=== PATIENT | female | born 1930 | race Two or more races ===

== ENCOUNTER 2016-05-30 21:09 | Inpatient (IN) | payer MEDICARE, OTHER ==
[~2016-05-30] VITALS: Ht 170.2 cm; Wt 77.1 kg
[2016-05-30] MEDS ORDERED: ALBUTEROL FS 2.5 MG/3 ML VIAL.NEB ONE (21:16)
[2016-05-30 21:20] VITALS: BP 161/104
[2016-05-30] MEDS ORDERED: NTG 50 MG/D5W250 ML BOTTL 250 ML IV ONE ×2 (21:21→21:30)
[2016-05-30] MEDS ORDERED: methylPREDNISolone SOD SUCC 125 MG/2ML VIAL ONE (21:21)
[2016-05-30] MEDS ORDERED: IV SET PRIMARY PUMP SET 1 EA INFUS.SET MC ONE ×2 (21:21→23:17)
[2016-05-30] MEDS ORDERED: FUROSEMIDE 40 MG/4 ML VIAL ONE (21:21)
[2016-05-30 21:23] LABS: BASOPHILS # (AUTO) 0.3 /CMM (0.0-0.2); BASOPHILS % (AUTO) 2.2 % (0.0-2.0); DIFF TOTAL % 100 %; EOSINOPHILS # (AUTO) 0.1 /CMM (0.0-0.7); EOSINOPHILS % (AUTO) 0.8 % (0.0-6.0); HEMATOCRIT 43 % (33-45); HEMOGLOBIN 13.8 g/dL (11.5-14.8); LYMPHOCYTES # (AUTO) 0.6 /CMM (0.8-4.8); MEAN CORPUSCULAR HEMOGLOBIN 27 PG (26.0-33.0); MEAN CORPUSCULAR HGB CONC 32 g/dl (31.0-36.0); MEAN CORPUSCULAR VOLUME 84 fL (82-100); MONOCYTES # (AUTO) 0.9 /CMM (0.1-1.30); NEUTROPHILS # (AUTO) 12.4 /CMM (1.8-8.9); PLATELET COUNT (AUTO) 362 /CMM (150-450); RED BLOOD CELL COUNT(AUTO) 5.12 MIL/uL (4.0-5.2); WHITE BLOOD COUNT (AUTO) 14.3 K/uL (4.3-11.0)
[2016-05-30] MEDS ORDERED: X VIATE TP (21:26)
[2016-05-30] MEDS ORDERED: IBUP-1481 PO (21:26)
[2016-05-30] MEDS ORDERED: TRIAMCINOLONE 0.5% TP (21:26)
[2016-05-30] MEDS ORDERED: MATURE MULTIVITAMIN PO (21:26)
[2016-05-30] MEDS ORDERED: ATOR40TA PO (21:26)
[2016-05-30] MEDS ORDERED: DILT360T13 PO (21:26)
[2016-05-30] MEDS ORDERED: ASPI325T2 PO (21:26)
[2016-05-30] MEDS ORDERED: ESCI10TA PO (21:26)
[2016-05-30] MEDS ORDERED: FUROSEMIDE 40 MG/4 ML VIAL IV ONE (21:30)
[2016-05-30] MEDS ORDERED: ALBUTEROL FS 2.5 MG/3 ML VIAL.NEB NEB ONE (21:30)
[2016-05-30] MEDS ORDERED: methylPREDNISolone SOD SUCC 125 MG/2ML VIAL IV ONE (21:30)
[2016-05-30 21:36] LABS: CALCIUM, SERUM 9.1 mg/dL (8.5-10.1); CREATININE 1.1 mg/dL (0.6-1.3); POTASSIUM 3.7 mmol/L (3.5-5.1)
[2016-05-30 21:40] LABS: INR 0.99 (0.87-1.13); PROTHROMBIN TIME 10.4 SECS (9.5-12.7)
[2016-05-30 21:44] LABS: TROPONIN I 0.032 ng/mL (0.00-0.056)
[2016-05-30 21:48] LABS: ALBUMIN 3.7 g/dL (3.4-5.0); BILIRUBIN,DIRECT 0.1 mg/dL (0.0-0.2); BILIRUBIN,TOTAL 0.4 mg/dL (0.2-1.0); INDIRECT BILIRUBIN 0.3 mg/dL (0.0-1.1); TOTAL PROTEIN, SERUM 7.2 g/dL (6.4-8.2)
[2016-05-30] MEDS ORDERED: DILTIAZEM HCL 50 MG IV ONE (22:24)
[2016-05-30] MEDS ORDERED: DILTIAZEM HCL 50 MG IV IV ONE ×2 (22:30→23:00)
[2016-05-30 22:34] LABS: ABG BASE EXCESS 1.3 mmol/L; ABG HCO3 26.3 mmol/L; ABG PCO2 43.1 mmHg (35.0-45.0); ABG PH 7.403 (7.350-7.450); ABG PO2 318.5 mmHg (75.0-100.0); ABG TOTAL HEMOGLOBIN 13.4 G/dL (12.0-16.0); ALLEN TEST Pass; AaDO2 61.9 mmHg; O2Hb 98.4 % (94.0-97.0)
[2016-05-30] MEDS ORDERED: IV D5W 100 ML IV ONE (23:17)
[2016-05-30] MEDS ORDERED: DILTIAZEM HCL 25 MG IV ONE (23:17)
[2016-05-30] MEDS ORDERED: DILTIAZEM HCL IV 125 MG in IV D5W 100 ML IV PRN (23:30)
[2016-05-30 23:45] LABS: LACTIC ACID 2.8 mmol/L (0.4-2.0)
[2016-05-31] VITALS (49 sets, daily range): BP systolic 84–162; BP diastolic 38–115
[2016-05-31 00:06] LABS: *LACTIC ACID REFLEX FLAG YES
[2016-05-31] MEDS ORDERED: LORA0.5T PO (00:28)
[2016-05-31 00:29] LABS: ABG BASE EXCESS 2.1 mmol/L; ABG HCO3 27.4 mmol/L; ABG NOTIFIED WHOM ED CHARGE RN; ABG PCO2 45.3 mmHg (35.0-45.0); ABG PH 7.399 (7.350-7.450); ABG PO2 99.2 mmHg (75.0-100.0); ABG TOTAL HEMOGLOBIN 13.5 G/dL (12.0-16.0); ALLEN TEST Pass; AaDO2 104.9 mmHg; O2Hb 96.1 % (94.0-97.0)
[2016-05-31] MEDS ORDERED: MORPHINE SULFATE INJ 2 MG/ML DISP.SYRIN IV PRN (00:30)
[2016-05-31] MEDS ORDERED: DILTIAZEM HCL IV 125 MG in IV D5W 100 ML IV PRN (00:30)
[2016-05-31] MEDS ORDERED: ENOXAPARIN SODIUM 40 MG/0.4 ML DISP.SYRIN SQ SCH (00:30)
[2016-05-31] MEDS ORDERED: DILTIAZEM HCL 50 MG IV ONE (00:58)
[2016-05-31] MEDS ORDERED: IV D5W 100 ML IV ONE (00:58)
[2016-05-31] MEDS ORDERED: DILTIAZEM HCL 25 MG IV ONE (00:58)
[2016-05-31] MEDS ORDERED: ENOXAPARIN SODIUM 40 MG/0.4 ML DISP.SYRIN SQ ONE (01:06)
[2016-05-31] MEDS ORDERED: NITROGLYCERIN PACKET 1 GM PACKET ONE ×2 (01:17→05:41)
[2016-05-31] MEDS: NITROGLYCERIN PACKET 1 GM PACKET TOP SCH ×2 (01:20→05:49)
[2016-05-31] MEDS ORDERED: METOPROLOL TARTRATE INJ 5 MG/5 ML AMPUL ONE (01:34)
[2016-05-31] MEDS ORDERED: FUROSEMIDE 20 MG/2 ML VIAL ONE (03:57)
[2016-05-31] MEDS: FUROSEMIDE 20 MG/2 ML VIAL IV SCH ×3 (04:10→11:53)
[2016-05-31 05:25] LABS: DIFF TOTAL % 100 %; HEMATOCRIT 40 % (33-45); HEMOGLOBIN 13.1 g/dL (11.5-14.8); LYMPHOCYTES # (AUTO) 0.3 /CMM (0.8-4.8); LYMPHOCYTES % (AUTO) 1.9 % (20.0-44.0); MEAN CORPUSCULAR HEMOGLOBIN 28 PG (26.0-33.0); MEAN CORPUSCULAR HGB CONC 33 g/dl (31.0-36.0); MEAN CORPUSCULAR VOLUME 85 fL (82-100); MONOCYTES % (AUTO) 0.3 % (2.0-12.0); NEUTROPHILS % (AUTO) 97.8 % (43.0-81.0); PLATELET COUNT (AUTO) 308 /CMM (150-450); RED BLOOD CELL COUNT(AUTO) 4.64 MIL/uL (4.0-5.2); WHITE BLOOD COUNT (AUTO) 14.3 K/uL (4.3-11.0)
[2016-05-31 05:40] LABS: TROPONIN I 0.038 ng/mL (0.00-0.056)
[2016-05-31 05:55] LABS: CALCIUM, SERUM 8.7 mg/dL (8.5-10.1); CREATININE 1.4 mg/dL (0.6-1.3); POTASSIUM 4.1 mmol/L (3.5-5.1)
[2016-05-31] MEDS ORDERED: METOPROLOL TARTRATE INJ 5 MG/5 ML AMPUL IVP PRN (06:00)
[2016-05-31 06:22] LABS: LACTIC ACID 5.1 mmol/L (0.4-2.0)
[2016-05-31] MEDS ORDERED: IV NS 0.9% 500 ML IV ONE ×2 (06:46→07:00)
[2016-05-31] MEDS ORDERED: IV SET PRIMARY PUMP SET 1 EA INFUS.SET MC ONE ×2 (06:46→19:11)
[2016-05-31] MEDS: LEVALBUTEROL HCL NEB 1.25 MG/0.5 ML VIAL.NEB NEB SCH ×2 (08:46→13:10)
[2016-05-31] MEDS: methylPREDNISolone SOD SUCC 125 MG/2ML VIAL IV SCH ×3 (08:48→17:53)
[2016-05-31] MEDS: PANTOPRAZOLE 40 MG VIAL IV SCH (08:48)
[2016-05-31] MEDS ORDERED: LORAZEPAM 0.5 MG TABLET PO PRN (09:00)
[2016-05-31] MEDS ORDERED: ASPIRIN 81 MG TAB.CHEW PO SCH (09:00)
[2016-05-31] MEDS ORDERED: methylPREDNISolone SOD SUCC 40 MG/ML VIAL IV SCH (09:00)
[2016-05-31 09:22] LABS: KETONES,URINE NEGATIVE (NEGATIVE); LEUKOCYTE ESTERASE ,URINE TRACE (NEGATIVE)
[2016-05-31] MEDS ORDERED: FEE PK DOSING 1 MIN EA MC ONE (09:35)
[2016-05-31 09:49] LABS: ADD UA MICROSCOPIC YES
[2016-05-31] MEDS: ESCITALOPRAM OXALATE (10 MG) 10 MG TABLET PO SCH (10:33)
[2016-05-31] MEDS: ATORVASTATIN 40 MG TABLET PO SCH (10:33)
[2016-05-31] MEDS: IBUPROFEN 400 MG TABLET PO SCH ×3 (10:33→17:53)
[2016-05-31] MEDS: VANCOMYCIN 1 GM in IV D5W 250 ML IV SCH (10:34)
[2016-05-31] MEDS ORDERED: SECONDARY IV SET 1 EA INFUS.SET MC ONE (10:39)
[2016-05-31 10:48] LABS: RBC,URINE TOO NUMEROUS TO COUN /HPF (0-2)
[2016-05-31 10:49] LABS: ADD URINE CULTURE NO
[2016-05-31] MEDS: PIPERACILLIN /TAZOBACTAM 3.375 G in IV D5W 50 ML IV SCH ×2 (11:53→17:53)
[2016-05-31] MEDS ORDERED: NITROGLYCERIN 30 GM TUBE TP SCH (12:00)
[2016-05-31] MEDS ORDERED: LEVALBUTEROL HCL NEB 1.25 MG/0.5 ML VIAL.NEB IH SCH (14:30)
[2016-05-31] MEDS: ALBUTEROL FS 2.5 MG/3 ML VIAL.NEB NEB SCH ×3 (15:31→23:30)
[2016-05-31] MEDS: IPRATROPIUM NEB FS 0.5 MG/2.5 ML AMPUL.NEB NEB SCH ×3 (15:31→23:30)
[2016-05-31] MEDS: ENOXAPARIN SODIUM 30 MG/0.3 ML DISP.SYRIN SQ SCH (20:45)
[2016-05-31] MEDS ORDERED: DIGOXIN INJ 0.5 MG/2 ML AMPUL IV ONE (22:30)
[2016-06-01] VITALS (45 sets, daily range): BP systolic 104–164; BP diastolic 57–108
[2016-06-01] MEDS ORDERED: IV NS 0.9% 250 ML IV ONE
[2016-06-01] MEDS: PIPERACILLIN /TAZOBACTAM 3.375 G in IV D5W 50 ML IV SCH ×5 (00:07→23:39)
[2016-06-01] MEDS ORDERED: IV SET PRIMARY PUMP SET 1 EA INFUS.SET MC ONE (00:11)
[2016-06-01] MEDS: IPRATROPIUM NEB FS 0.5 MG/2.5 ML AMPUL.NEB NEB SCH ×6 (03:35→23:43)
[2016-06-01] MEDS: ALBUTEROL FS 2.5 MG/3 ML VIAL.NEB NEB SCH ×6 (03:35→23:43)
[2016-06-01 04:42] LABS: BASOPHILS % (AUTO) 0.2 % (0.0-2.0); DIFF TOTAL % 100 %; HEMATOCRIT 38 % (33-45); HEMOGLOBIN 12.4 g/dL (11.5-14.8); LYMPHOCYTES # (AUTO) 0.5 /CMM (0.8-4.8); LYMPHOCYTES % (AUTO) 2.9 % (20.0-44.0); MEAN CORPUSCULAR HEMOGLOBIN 28 PG (26.0-33.0); MEAN CORPUSCULAR HGB CONC 33 g/dl (31.0-36.0); MEAN CORPUSCULAR VOLUME 85 fL (82-100); MONOCYTES # (AUTO) 0.5 /CMM (0.1-1.30); MONOCYTES % (AUTO) 2.9 % (2.0-12.0); NEUTROPHILS # (AUTO) 16.3 /CMM (1.8-8.9); PLATELET COUNT (AUTO) 291 /CMM (150-450); RED BLOOD CELL COUNT(AUTO) 4.44 MIL/uL (4.0-5.2); WHITE BLOOD COUNT (AUTO) 17.3 K/uL (4.3-11.0)
[2016-06-01 04:57] LABS: BILIRUBIN,TOTAL 0.4 mg/dL (0.2-1.0); CALCIUM, SERUM 8.5 mg/dL (8.5-10.1); CREATININE 1.2 mg/dL (0.6-1.3); PHOSPHORUS 3.6 mg/dL (2.5-4.9); POTASSIUM 4.1 mmol/L (3.5-5.1)
[2016-06-01 05:02] LABS: TROPONIN I 0.024 ng/mL (0.00-0.056)
[2016-06-01] MEDS: ATORVASTATIN 40 MG TABLET PO SCH (08:51)
[2016-06-01] MEDS: PANTOPRAZOLE 40 MG VIAL IV SCH (08:51)
[2016-06-01] MEDS: ESCITALOPRAM OXALATE (10 MG) 10 MG TABLET PO SCH (08:51)
[2016-06-01] MEDS: IBUPROFEN 400 MG TABLET PO SCH ×2 (08:51→17:06)
[2016-06-01] MEDS: methylPREDNISolone SOD SUCC 125 MG/2ML VIAL IV SCH ×3 (08:51→17:05)
[2016-06-01] MEDS: DILTIAZEM HCL CD 240 MG PO SCH (08:52)
[2016-06-01] MEDS: VANCOMYCIN 1 GM in IV D5W 250 ML IV SCH (09:04)
[2016-06-01] MEDS: ASPIRIN 325 MG TABLET PO SCH (09:05)
[2016-06-01] MEDS ORDERED: SECONDARY IV SET 1 EA INFUS.SET MC ONE (11:52)
[2016-06-01] MEDS: LORAZEPAM 0.5 MG TABLET PO PRN (15:54)
[2016-06-01] MEDS: LACTOBACILLUS RHAMNOSUS GG 1 EACH CAP.SPRINK PO SCH (17:05)
[2016-06-01] MEDS: ENOXAPARIN SODIUM 30 MG/0.3 ML DISP.SYRIN SQ SCH (21:02)
[2016-06-02] VITALS (42 sets, daily range): BP systolic 103–216; BP diastolic 63–107
[2016-06-02] MEDS: IPRATROPIUM NEB FS 0.5 MG/2.5 ML AMPUL.NEB NEB SCH ×6 (03:57→23:44)
[2016-06-02] MEDS: ALBUTEROL FS 2.5 MG/3 ML VIAL.NEB NEB SCH ×6 (03:57→23:44)
[2016-06-02 04:53] LABS: BASOPHILS % (AUTO) 0.1 % (0.0-2.0); DIFF TOTAL % 100 %; HEMATOCRIT 37 % (33-45); HEMOGLOBIN 12.3 g/dL (11.5-14.8); LYMPHOCYTES # (AUTO) 0.3 /CMM (0.8-4.8); LYMPHOCYTES % (AUTO) 2.2 % (20.0-44.0); MEAN CORPUSCULAR HEMOGLOBIN 28 PG (26.0-33.0); MEAN CORPUSCULAR HGB CONC 33 g/dl (31.0-36.0); MEAN CORPUSCULAR VOLUME 84 fL (82-100); MONOCYTES # (AUTO) 0.3 /CMM (0.1-1.30); MONOCYTES % (AUTO) 1.9 % (2.0-12.0); NEUTROPHILS # (AUTO) 14.8 /CMM (1.8-8.9); NEUTROPHILS % (AUTO) 95.8 % (43.0-81.0); PLATELET COUNT (AUTO) 303 /CMM (150-450); WHITE BLOOD COUNT (AUTO) 15.4 K/uL (4.3-11.0)
[2016-06-02 05:03] LABS: CALCIUM, SERUM 8.2 mg/dL (8.5-10.1); CREATININE 1.2 mg/dL (0.6-1.3); POTASSIUM 3.9 mmol/L (3.5-5.1)
[2016-06-02] MEDS: PIPERACILLIN /TAZOBACTAM 3.375 G in IV D5W 50 ML IV SCH ×4 (06:01→23:32)
[2016-06-02] MEDS: LACTOBACILLUS RHAMNOSUS GG 1 EACH CAP.SPRINK PO SCH ×2 (07:48→17:41)
[2016-06-02] MEDS: IBUPROFEN 400 MG TABLET PO SCH (07:48)
[2016-06-02] MEDS: ATORVASTATIN 40 MG TABLET PO SCH (07:48)
[2016-06-02] MEDS: PANTOPRAZOLE 40 MG VIAL IV SCH (07:48)
[2016-06-02] MEDS: methylPREDNISolone SOD SUCC 125 MG/2ML VIAL IV SCH ×3 (07:48→17:40)
[2016-06-02] MEDS: DILTIAZEM HCL CD 240 MG PO SCH (07:48)
[2016-06-02] MEDS: ESCITALOPRAM OXALATE (10 MG) 10 MG TABLET PO SCH (07:48)
[2016-06-02] MEDS: ASPIRIN 325 MG TABLET PO SCH (07:49)
[2016-06-02] MEDS ORDERED: IV SET PRIMARY PUMP SET 1 EA INFUS.SET MC ONE ×2 (08:04→23:10)
[2016-06-02] MEDS: POTASSIUM CHLORIDE 20 MEQ TAB.PRT.SR PO SCH ×3 (08:07→10:16)
[2016-06-02] MEDS ORDERED: BUMETANIDE INJ 8 MG in IV NS 0.9% 48 ML IV ONE (08:30)
[2016-06-02] MEDS: VANCOMYCIN 1 GM in IV D5W 250 ML IV SCH (09:34)
[2016-06-02] MEDS: DIGOXIN INJ 0.5 MG/2 ML AMPUL IV SCH ×2 (12:26→17:41)
[2016-06-02] MEDS: ACETYLCYSTEINE 10% SOLN 400 MG/4 ML VIAL NEB SCH ×3 (13:00→23:45)
[2016-06-02] MEDS: ENOXAPARIN SODIUM 30 MG/0.3 ML DISP.SYRIN SQ SCH (21:07)
[2016-06-02] MEDS ORDERED: MAGNESIUM HYDROXIDE 30 ML UDC ONE (21:18)
[2016-06-02] MEDS ORDERED: MAGNESIUM HYDROXIDE 30 ML UDC PO PRN (21:30)
[2016-06-02] MEDS ORDERED: IV NS 0.9% 250 ML IV ONE (23:11)
[2016-06-03] VITALS (30 sets, daily range): BP systolic 103–148; BP diastolic 62–89
[2016-06-03] MEDS: DIGOXIN INJ 0.5 MG/2 ML AMPUL IV SCH (00:01)
[2016-06-03] MEDS: IPRATROPIUM NEB FS 0.5 MG/2.5 ML AMPUL.NEB NEB SCH ×6 (03:21→23:21)
[2016-06-03] MEDS: ALBUTEROL FS 2.5 MG/3 ML VIAL.NEB NEB SCH ×6 (03:21→23:21)
[2016-06-03 05:22] LABS: BASOPHILS % (AUTO) 0.1 % (0.0-2.0); DIFF TOTAL % 100 %; HEMATOCRIT 44 % (33-45); HEMOGLOBIN 14.1 g/dL (11.5-14.8); LYMPHOCYTES # (AUTO) 0.3 /CMM (0.8-4.8); LYMPHOCYTES % (AUTO) 2.3 % (20.0-44.0); MEAN CORPUSCULAR HEMOGLOBIN 27 PG (26.0-33.0); MEAN CORPUSCULAR HGB CONC 33 g/dl (31.0-36.0); MEAN CORPUSCULAR VOLUME 85 fL (82-100); MONOCYTES # (AUTO) 0.4 /CMM (0.1-1.30); MONOCYTES % (AUTO) 2.7 % (2.0-12.0); NEUTROPHILS % (AUTO) 94.9 % (43.0-81.0); PLATELET COUNT (AUTO) 332 /CMM (150-450); RED BLOOD CELL COUNT(AUTO) 5.15 MIL/uL (4.0-5.2); WHITE BLOOD COUNT (AUTO) 13.7 K/uL (4.3-11.0)
[2016-06-03 05:30] LABS: ALANINE AMINOTRANSFERASE 40 U/L (12-78); ALBUMIN 3.1 g/dL (3.4-5.0); ANION GAP 8 (5-14); ASPARTATE AMINOTRANSFERASE 34 U/L (15-37); BILIRUBIN,TOTAL 0.5 mg/dL (0.2-1.0); CALCIUM, SERUM 8.6 mg/dL (8.5-10.1); CHLORIDE 102 mmol/L (98-107); CREATININE 1.4 mg/dL (0.6-1.3); GLUCOSE 137 mg/dL (74-106); PHOSPHORUS 3.6 mg/dL (2.5-4.9); POTASSIUM 3.6 mmol/L (3.5-5.1); SODIUM SERUM 146 mmol/L (136-145); TOTAL PROTEIN, SERUM 6.5 g/dL (6.4-8.2); UREA NITROGEN, BLOOD 36 mg/dL (7-18)
[2016-06-03] MEDS: PIPERACILLIN /TAZOBACTAM 3.375 G in IV D5W 50 ML IV SCH ×4 (05:36→23:52)
[2016-06-03 05:44] LABS: CARBON DIOXIDE 40 mmol/L (21-32)
[2016-06-03 05:45] LABS: LACTIC ACID 2.2 mmol/L (0.4-2.0)
[2016-06-03 05:46] LABS: *LACTIC ACID REFLEX FLAG YES
[2016-06-03 07:34] LABS: BILIRUBIN,DIRECT 0.2 mg/dL (0.0-0.2)
[2016-06-03] MEDS: ACETYLCYSTEINE 10% SOLN 400 MG/4 ML VIAL NEB SCH ×3 (07:39→23:21)
[2016-06-03] MEDS: ASPIRIN 325 MG TABLET PO SCH (08:35)
[2016-06-03] MEDS: ESCITALOPRAM OXALATE (10 MG) 10 MG TABLET PO SCH (08:35)
[2016-06-03] MEDS: ATORVASTATIN 40 MG TABLET PO SCH (08:35)
[2016-06-03] MEDS: LACTOBACILLUS RHAMNOSUS GG 1 EACH CAP.SPRINK PO SCH ×2 (08:35→17:47)
[2016-06-03] MEDS: PANTOPRAZOLE 40 MG VIAL IV SCH (08:36)
[2016-06-03] MEDS: methylPREDNISolone SOD SUCC 125 MG/2ML VIAL IV SCH ×3 (08:36→17:47)
[2016-06-03] MEDS: DILTIAZEM HCL CD 180 MG PO SCH (08:36)
[2016-06-03] MEDS: VANCOMYCIN 1 GM in IV D5W 250 ML IV SCH (10:44)
[2016-06-03] MEDS: DIGOXIN 0.125 MG TABLET PO SCH (12:03)
[2016-06-03] MEDS: ENOXAPARIN SODIUM 30 MG/0.3 ML DISP.SYRIN SQ SCH (21:09)
[2016-06-04] VITALS (20 sets, daily range): BP systolic 105–173; BP diastolic 32–107
[2016-06-04] MEDS: ALBUTEROL FS 2.5 MG/3 ML VIAL.NEB NEB SCH ×6 (03:04→23:59)
[2016-06-04] MEDS: IPRATROPIUM NEB FS 0.5 MG/2.5 ML AMPUL.NEB NEB SCH ×6 (03:04→23:59)
[2016-06-04] MEDS ORDERED: SECONDARY IV SET 1 EA INFUS.SET MC ONE ×2 (04:07→20:12)
[2016-06-04] MEDS: VANCOMYCIN 1 GM in IV D5W 250 ML IV SCH ×2 (04:07→21:50)
[2016-06-04 04:56] LABS: DIFF TOTAL % 100 %; HEMATOCRIT 40 % (33-45); LYMPHOCYTES # (AUTO) 0.3 /CMM (0.8-4.8); LYMPHOCYTES % (AUTO) 2.9 % (20.0-44.0); MEAN CORPUSCULAR HEMOGLOBIN 28 PG (26.0-33.0); MEAN CORPUSCULAR HGB CONC 33 g/dl (31.0-36.0); MEAN CORPUSCULAR VOLUME 85 fL (82-100); MONOCYTES # (AUTO) 0.2 /CMM (0.1-1.30); MONOCYTES % (AUTO) 1.8 % (2.0-12.0); NEUTROPHILS # (AUTO) 10.7 /CMM (1.8-8.9); NEUTROPHILS % (AUTO) 95.3 % (43.0-81.0); PLATELET COUNT (AUTO) 297 /CMM (150-450); WHITE BLOOD COUNT (AUTO) 11.3 K/uL (4.3-11.0)
[2016-06-04 05:05] LABS: CREATININE 1.2 mg/dL (0.6-1.3); POTASSIUM 3.6 mmol/L (3.5-5.1)
[2016-06-04] MEDS: PIPERACILLIN /TAZOBACTAM 3.375 G in IV D5W 50 ML IV SCH ×3 (05:37→17:08)
[2016-06-04] MEDS: ACETYLCYSTEINE 10% SOLN 400 MG/4 ML VIAL NEB SCH ×3 (07:31→23:59)
[2016-06-04] MEDS: LACTOBACILLUS RHAMNOSUS GG 1 EACH CAP.SPRINK PO SCH ×2 (08:17→17:08)
[2016-06-04] MEDS: methylPREDNISolone SOD SUCC 125 MG/2ML VIAL IV SCH ×3 (08:17→17:08)
[2016-06-04] MEDS: ESCITALOPRAM OXALATE (10 MG) 10 MG TABLET PO SCH (08:17)
[2016-06-04] MEDS: DILTIAZEM HCL CD 180 MG PO SCH (08:17)
[2016-06-04] MEDS: PANTOPRAZOLE 40 MG VIAL IV SCH (08:17)
[2016-06-04] MEDS: ATORVASTATIN 40 MG TABLET PO SCH (08:17)
[2016-06-04] MEDS: ASPIRIN 325 MG TABLET PO SCH (08:18)
[2016-06-04] MEDS ORDERED: IV SET PRIMARY PUMP SET 1 EA INFUS.SET MC ONE ×2 (11:36→20:11)
[2016-06-04] MEDS: DIGOXIN 0.125 MG TABLET PO SCH (12:07)
[2016-06-04] MEDS ORDERED: IV NS 0.9% 250 ML IV ONE (20:11)
[2016-06-04] MEDS: ENOXAPARIN SODIUM 30 MG/0.3 ML DISP.SYRIN SQ SCH (21:00)
[2016-06-05] VITALS: BP 143/66
[2016-06-05] MEDS ORDERED: SECONDARY IV SET 1 EA INFUS.SET MC ONE ×2 (01:53→16:48)
[2016-06-05] MEDS: PIPERACILLIN /TAZOBACTAM 3.375 G in IV D5W 50 ML IV SCH ×5 (01:57→23:47)
[2016-06-05 04:00] VITALS: BP 143/74
[2016-06-05] MEDS: IPRATROPIUM NEB FS 0.5 MG/2.5 ML AMPUL.NEB NEB SCH ×5 (04:09→20:16)
[2016-06-05] MEDS: ALBUTEROL FS 2.5 MG/3 ML VIAL.NEB NEB SCH ×5 (04:09→20:16)
[2016-06-05 07:09] LABS: DIFF TOTAL % 100 %; HEMATOCRIT 36 % (33-45); HEMOGLOBIN 11.9 g/dL (11.5-14.8); LYMPHOCYTES # (AUTO) 0.4 /CMM (0.8-4.8); LYMPHOCYTES % (AUTO) 1.9 % (20.0-44.0); MEAN CORPUSCULAR HEMOGLOBIN 28 PG (26.0-33.0); MEAN CORPUSCULAR HGB CONC 33 g/dl (31.0-36.0); MEAN CORPUSCULAR VOLUME 84 fL (82-100); MONOCYTES # (AUTO) 0.6 /CMM (0.1-1.30); MONOCYTES % (AUTO) 2.7 % (2.0-12.0); NEUTROPHILS % (AUTO) 95.4 % (43.0-81.0); PLATELET COUNT (AUTO) 330 /CMM (150-450)
[2016-06-05 07:12] LABS: CALCIUM, SERUM 8.5 mg/dL (8.5-10.1); CREATININE 0.8 mg/dL (0.6-1.3); POTASSIUM 3.5 mmol/L (3.5-5.1)
[2016-06-05] MEDS: ACETYLCYSTEINE 10% SOLN 400 MG/4 ML VIAL NEB SCH ×2 (07:17→15:05)
[2016-06-05 08:00] VITALS: BP 146/78
[2016-06-05] MEDS: ASPIRIN 325 MG TABLET PO SCH (08:10)
[2016-06-05] MEDS: ATORVASTATIN 40 MG TABLET PO SCH (08:10)
[2016-06-05] MEDS: LACTOBACILLUS RHAMNOSUS GG 1 EACH CAP.SPRINK PO SCH ×2 (08:10→16:53)
[2016-06-05] MEDS: methylPREDNISolone SOD SUCC 125 MG/2ML VIAL IV SCH ×2 (08:10→16:53)
[2016-06-05] MEDS: ESCITALOPRAM OXALATE (10 MG) 10 MG TABLET PO SCH (08:10)
[2016-06-05] MEDS: PANTOPRAZOLE 40 MG VIAL IV SCH ×2 (08:10→21:23)
[2016-06-05] MEDS: DILTIAZEM HCL CD 180 MG PO SCH (08:11)
[2016-06-05 12:00] VITALS: BP 100/67
[2016-06-05 12:17] LABS: LYMPHOCYTES % (MANUAL) 7 % (16-48); PLATELET ESTIMATE ADEQUATE
[2016-06-05 12:18] LABS: RBC MORPHOLOGY COMMENT NORMAL RBC MORPH
[2016-06-05] MEDS: FAMOTIDINE (20 MG) 20 MG TABLET PO SCH (12:27)
[2016-06-05] MEDS: DIGOXIN 0.125 MG TABLET PO SCH (12:27)
[2016-06-05 16:00] VITALS: BP 138/77
[2016-06-05] MEDS: VANCOMYCIN 1 GM in IV D5W 250 ML IV SCH (16:53)
[2016-06-05] MEDS: LORAZEPAM 0.5 MG TABLET PO PRN (18:51)
[2016-06-05 20:00] VITALS: BP 136/72
[2016-06-05] MEDS ORDERED: DIGOXIN INJ 0.5 MG/2 ML AMPUL ONE (21:18)
[2016-06-05] MEDS ORDERED: LORAZEPAM INJ 2 MG/ML VIAL ONE (21:18)
[2016-06-05] MEDS ORDERED: LORAZEPAM INJ 2 MG/ML VIAL IV ONE (21:30)
[2016-06-05] MEDS ORDERED: DIGOXIN INJ 0.5 MG/2 ML AMPUL IV ONE (21:30)
[2016-06-06] VITALS (95 sets, daily range): BP systolic 69–160; BP diastolic 37–109
[2016-06-06] MEDS: ALBUTEROL FS 2.5 MG/3 ML VIAL.NEB NEB SCH ×7 (00:32→23:07)
[2016-06-06] MEDS: IPRATROPIUM NEB FS 0.5 MG/2.5 ML AMPUL.NEB NEB SCH ×7 (00:32→23:07)
[2016-06-06] MEDS: ACETYLCYSTEINE 10% SOLN 400 MG/4 ML VIAL NEB SCH ×4 (00:32→23:07)
[2016-06-06 03:35] LABS: ABG BASE EXCESS 5.7 mmol/L; ABG HCO3 28.8 mmol/L; ABG PCO2 36.2 mmHg (35.0-45.0); ABG PH 7.519 (7.350-7.450); ABG PO2 60.4 mmHg (75.0-100.0); ABG TOTAL HEMOGLOBIN 10.3 G/dL (12.0-16.0); O2Hb 89.7 % (94.0-97.0)
[2016-06-06 03:41] LABS: BASOPHILS % (AUTO) 0.1 % (0.0-2.0); DIFF TOTAL % 100 %; HEMATOCRIT 29 % (33-45); HEMOGLOBIN 9.5 g/dL (11.5-14.8); LYMPHOCYTES # (AUTO) 0.8 /CMM (0.8-4.8); MEAN CORPUSCULAR HEMOGLOBIN 27 PG (26.0-33.0); MEAN CORPUSCULAR HGB CONC 33 g/dl (31.0-36.0); MEAN CORPUSCULAR VOLUME 84 fL (82-100); MONOCYTES # (AUTO) 1.8 /CMM (0.1-1.30); MONOCYTES % (AUTO) 4.5 % (2.0-12.0); NEUTROPHILS # (AUTO) 37.9 /CMM (1.8-8.9); NEUTROPHILS % (AUTO) 93.4 % (43.0-81.0); PLATELET COUNT (AUTO) 417 /CMM (150-450); RED BLOOD CELL COUNT(AUTO) 3.49 MIL/uL (4.0-5.2)
[2016-06-06] MEDS ORDERED: IV NS 0.9% 250 ML IV ONE ×6 (03:46→11:35)
[2016-06-06 03:47] LABS: CALCIUM, SERUM 8.7 mg/dL (8.5-10.1); CREATININE 1.9 mg/dL (0.6-1.3); POTASSIUM 4.4 mmol/L (3.5-5.1)
[2016-06-06] MEDS ORDERED: DIGOXIN INJ 0.5 MG/2 ML AMPUL ONE (03:47)
[2016-06-06 03:58] LABS: WHITE BLOOD COUNT (AUTO) 40.5 K/uL (4.3-11.0)
[2016-06-06] MEDS ORDERED: DIGOXIN INJ 0.5 MG/2 ML AMPUL IV ONE (04:00)
[2016-06-06 04:39] LABS: ANISOCYTOSIS 1+; BASOPHILS % (MANUAL) 0 % (0.0-2.0); EOSINOPHILS % (MANUAL) 0 % (0-4); LYMPHOCYTES % (MANUAL) 6 % (16-48); OVALOCYTES 1+; PLATELET ESTIMATE INCREASED
[2016-06-06] MEDS: PIPERACILLIN /TAZOBACTAM 3.375 G in IV D5W 50 ML IV SCH ×4 (05:38→23:22)
[2016-06-06] MEDS ORDERED: IV NS 0.9% 1,000 ML ONE (06:50)
[2016-06-06] MEDS ORDERED: IV SET PRIMARY PUMP SET 1 EA INFUS.SET MC ONE ×4 (06:50→09:31)
[2016-06-06] MEDS ORDERED: ETOMIDATE 2 MG/ML VIAL IV ONE (06:56)
[2016-06-06] MEDS ORDERED: FEE EMEERGENCY 1 MIN EA MC ONE (06:56)
[2016-06-06] MEDS ORDERED: SUCCINYLCHOLINE CHLORIDE 20 MG/ML VIAL IV ONE (06:56)
[2016-06-06] MEDS: PROPOFOL 100 ML IV PRN ×2 (07:20→19:06)
[2016-06-06] MEDS ORDERED: NOREPINEPHRINE 8 MG in IV D5W 500 ML IV PRN (08:00)
[2016-06-06] MEDS: ESCITALOPRAM OXALATE (10 MG) 10 MG TABLET PO SCH (09:00)
[2016-06-06] MEDS: ATORVASTATIN 40 MG TABLET PO SCH (09:00)
[2016-06-06] MEDS: LACTOBACILLUS RHAMNOSUS GG 1 EACH CAP.SPRINK PO SCH ×2 (09:00→17:00)
[2016-06-06] MEDS: PANTOPRAZOLE 40 MG VIAL IV SCH ×2 (09:00→21:00)
[2016-06-06] MEDS: FAMOTIDINE (20 MG) 20 MG TABLET PO SCH (09:00)
[2016-06-06] MEDS ORDERED: IV NS 0.9% 500 ML IV ONE (09:05)
[2016-06-06] MEDS ORDERED: BLOOD IV SET 1 EA INFUS.SET MC ONE ×2 (09:31→11:48)
[2016-06-06 09:37] LABS: ABG BASE EXCESS 3.1 mmol/L; ABG HCO3 27.5 mmol/L; ABG PCO2 41.4 mmHg (35.0-45.0); ABG PO2 447.8 mmHg (75.0-100.0); ABG TOTAL HEMOGLOBIN 8.9 G/dL (12.0-16.0); ALLEN TEST Pass; AaDO2 223.8 mmHg; O2Hb 96.9 % (94.0-97.0)
[2016-06-06] MEDS: methylPREDNISolone SOD SUCC 125 MG/2ML VIAL IV SCH ×2 (10:07→16:53)
[2016-06-06] MEDS: PANTOPRAZOLE 80 MG in IV NS 0.9% 500 ML IV PRN ×2 (10:22→19:08)
[2016-06-06] MEDS ORDERED: SECONDARY IV SET 1 EA INFUS.SET MC ONE ×2 (10:22→12:10)
[2016-06-06] MEDS: VANCOMYCIN 1 GM in IV D5W 250 ML IV SCH ×2 (10:23→22:00)
[2016-06-06] MEDS ORDERED: NOREPINEPHRINE 16 MG in IV D5W 500 ML IV PRN (11:00)
[2016-06-06] MEDS ORDERED: ROCURONIUM BROMIDE 50 MG/5 ML ONE (11:06)
[2016-06-06 12:32] LABS: IRON, SERUM 97 ug/dl (50-175); PERCENT SATURATION 46 % (14-33); TOTAL IRON BINDING CAPACITY 209 ug/dl (250-450)
[2016-06-06] MEDS ORDERED: SOD FERRIC GLUC 125 MG in IV NS 0.9% 100 ML IV SCH (14:00)
[2016-06-06 14:29] LABS: ALBUMIN 2.5 g/dL (3.4-5.0); BILIRUBIN,TOTAL 0.5 mg/dL (0.2-1.0); CALCIUM, SERUM 7.7 mg/dL (8.5-10.1); CREATININE 2.7 mg/dL (0.6-1.3); POTASSIUM 3.9 mmol/L (3.5-5.1)
[2016-06-06] MEDS: NOREPINEPHRINE 16 MG in IV D5W 500 ML IV PRN (15:29)
[2016-06-06] MEDS: SUCRALFATE 1 G/10 ML UDC GT SCH ×2 (17:22→21:32)
[2016-06-06 21:27] LABS: HEMOGLOBIN 11.6 g/dL (11.5-14.8)
[2016-06-07] VITALS (99 sets, daily range): BP systolic 76–132; BP diastolic 41–81
[2016-06-07] MEDS: IPRATROPIUM NEB FS 0.5 MG/2.5 ML AMPUL.NEB NEB SCH ×6 (03:35→22:53)
[2016-06-07] MEDS: ALBUTEROL FS 2.5 MG/3 ML VIAL.NEB NEB SCH ×6 (03:35→22:53)
[2016-06-07] MEDS: PANTOPRAZOLE 80 MG in IV NS 0.9% 500 ML IV PRN (04:26)
[2016-06-07] MEDS: PROPOFOL 100 ML IV PRN ×3 (04:27→19:27)
[2016-06-07] MEDS: NOREPINEPHRINE 16 MG in IV D5W 500 ML IV PRN ×2 (04:30→10:35)
[2016-06-07 05:03] LABS: DIFF TOTAL % 100 %; HEMATOCRIT 32 % (33-45); HEMOGLOBIN 10.8 g/dL (11.5-14.8); LYMPHOCYTES # (AUTO) 1.4 /CMM (0.8-4.8); MEAN CORPUSCULAR HEMOGLOBIN 28 PG (26.0-33.0); MEAN CORPUSCULAR HGB CONC 34 g/dl (31.0-36.0); MEAN CORPUSCULAR VOLUME 85 fL (82-100); MONOCYTES # (AUTO) 2.1 /CMM (0.1-1.30); MONOCYTES % (AUTO) 4.6 % (2.0-12.0); NEUTROPHILS # (AUTO) 42.9 /CMM (1.8-8.9); NEUTROPHILS % (AUTO) 92.4 % (43.0-81.0); PLATELET COUNT (AUTO) 295 /CMM (150-450); RED BLOOD CELL COUNT(AUTO) 3.81 MIL/uL (4.0-5.2)
[2016-06-07 05:16] LABS: CALCIUM, SERUM 7.5 mg/dL (8.5-10.1); CREATININE 2.6 mg/dL (0.6-1.3); POTASSIUM 3.7 mmol/L (3.5-5.1)
[2016-06-07 05:22] LABS: DIGOXIN 2.55 ng/mL (0.90-2.00); WHITE BLOOD COUNT (AUTO) 46.4 K/uL (4.3-11.0)
[2016-06-07] MEDS: PIPERACILLIN /TAZOBACTAM 3.375 G in IV D5W 50 ML IV SCH (05:53)
[2016-06-07 06:08] LABS: ANISOCYTOSIS 1+; BAND % (MANUAL) 3 % (0.0-5.0); BASOPHILS % (MANUAL) 0 % (0.0-2.0); EOSINOPHILS % (MANUAL) 0 % (0-4); LYMPHOCYTES % (MANUAL) 3 % (16-48); METAMYELOCYTES % 1 % (0-0); OVALOCYTES 1+; PLATELET ESTIMATE ADEQUATE
[2016-06-07] MEDS: ACETYLCYSTEINE 10% SOLN 400 MG/4 ML VIAL NEB SCH ×3 (07:01→22:53)
[2016-06-07] MEDS: SUCRALFATE 1 G/10 ML UDC GT SCH ×4 (07:30→20:06)
[2016-06-07 08:50] LABS: ABG BASE EXCESS -0.1 mmol/L; ABG HCO3 22.9 mmol/L; ABG PCO2 31.5 mmHg (35.0-45.0); ABG PH 7.479 (7.350-7.450); ABG TOTAL HEMOGLOBIN 10.4 G/dL (12.0-16.0); ALLEN TEST Pass; O2Hb 95.6 % (94.0-97.0)
[2016-06-07] MEDS: ESCITALOPRAM OXALATE (10 MG) 10 MG TABLET PO SCH (09:00)
[2016-06-07] MEDS: ATORVASTATIN 40 MG TABLET PO SCH (09:00)
[2016-06-07] MEDS: PANTOPRAZOLE 40 MG VIAL IV SCH ×2 (09:00→20:10)
[2016-06-07] MEDS: FAMOTIDINE (20 MG) 20 MG TABLET PO SCH (09:00)
[2016-06-07] MEDS: LACTOBACILLUS RHAMNOSUS GG 1 EACH CAP.SPRINK PO SCH ×2 (09:00→17:00)
[2016-06-07] MEDS: methylPREDNISolone SOD SUCC 125 MG/2ML VIAL IV SCH ×2 (10:05→17:17)
[2016-06-07] MEDS: IV D5/ 0.9% NACL 1,000 ML IV SCH ×3 (10:34→22:49)
[2016-06-07] MEDS: VANCOMYCIN 1 GM in IV D5W 250 ML IV SCH (10:35)
[2016-06-07 12:10] LABS: KETONES,URINE NEGATIVE (NEGATIVE); LEUKOCYTE ESTERASE ,URINE NEGATIVE (NEGATIVE); PH,URINE 5.5 (5.0-8.0)
[2016-06-07 12:11] LABS: ADD UA MICROSCOPIC YES
[2016-06-07 12:14] LABS: ADD URINE CULTURE NO; WBC,URINE 0-2 /HPF (0-3)
[2016-06-07 12:15] LABS: URIC ACID CRYSTALS,URINE Few /HPF (None Seen)
[2016-06-07] MEDS: PIPERACILLIN /TAZOBACTAM 2.25 G in IV D5W 50 ML IV SCH ×3 (12:54→23:54)
[2016-06-07] MEDS ORDERED: IV SET PRIMARY PUMP SET 1 EA INFUS.SET MC ONE ×2 (12:55→20:05)
[2016-06-07 13:24] LABS: CREATININE, URINE 66.7 MG/DL (30.0-125.0)
[2016-06-07] MEDS: ACETAMINOPHEN 650 MG/SUPP.RECT RC PRN (21:05)
[2016-06-08] VITALS (69 sets, daily range): BP systolic 69–139; BP diastolic 43–100
[2016-06-08] MEDS: PROPOFOL 100 ML IV PRN ×5 (01:55→18:26)
[2016-06-08] MEDS: IPRATROPIUM NEB FS 0.5 MG/2.5 ML AMPUL.NEB NEB SCH ×6 (03:29→23:33)
[2016-06-08] MEDS: ALBUTEROL FS 2.5 MG/3 ML VIAL.NEB NEB SCH ×6 (03:29→23:33)
[2016-06-08 04:52] LABS: BASOPHILS # (AUTO) 0.2 /CMM (0.0-0.2); BASOPHILS % (AUTO) 0.4 % (0.0-2.0); DIFF TOTAL % 100 %; HEMATOCRIT 25 % (33-45); HEMOGLOBIN 8.1 g/dL (11.5-14.8); LYMPHOCYTES # (AUTO) 1.5 /CMM (0.8-4.8); LYMPHOCYTES % (AUTO) 3.8 % (20.0-44.0); MEAN CORPUSCULAR HEMOGLOBIN 28 PG (26.0-33.0); MEAN CORPUSCULAR HGB CONC 33 g/dl (31.0-36.0); MEAN CORPUSCULAR VOLUME 85 fL (82-100); MONOCYTES # (AUTO) 1.6 /CMM (0.1-1.30); MONOCYTES % (AUTO) 4.2 % (2.0-12.0); NEUTROPHILS # (AUTO) 35.7 /CMM (1.8-8.9); NEUTROPHILS % (AUTO) 91.6 % (43.0-81.0); PLATELET COUNT (AUTO) 217 /CMM (150-450); RED BLOOD CELL COUNT(AUTO) 2.91 MIL/uL (4.0-5.2)
[2016-06-08 05:04] LABS: CALCIUM, SERUM 7.3 mg/dL (8.5-10.1); CREATININE 2.5 mg/dL (0.6-1.3); POTASSIUM 3.3 mmol/L (3.5-5.1)
[2016-06-08 05:05] LABS: DIGOXIN 1.7 ng/mL (0.90-2.00)
[2016-06-08] MEDS: NOREPINEPHRINE 16 MG in IV D5W 500 ML IV PRN ×2 (05:16→21:29)
[2016-06-08] MEDS: PIPERACILLIN /TAZOBACTAM 2.25 G in IV D5W 50 ML IV SCH ×2 (05:23→12:00)
[2016-06-08 06:00] LABS: BAND % (MANUAL) 4 % (0.0-5.0); BASOPHILS % (MANUAL) 0 % (0.0-2.0); EOSINOPHILS % (MANUAL) 1 % (0-4); LYMPHOCYTES % (MANUAL) 1 % (16-48)
[2016-06-08 06:01] LABS: CORRECTED WHITE BLOOD COUNT 37.1 K/uL (4.0-11.2)
[2016-06-08] MEDS: SUCRALFATE 1 G/10 ML UDC GT SCH ×4 (07:30→21:23)
[2016-06-08] MEDS: ACETYLCYSTEINE 10% SOLN 400 MG/4 ML VIAL NEB SCH ×3 (07:40→23:33)
[2016-06-08] MEDS: PANTOPRAZOLE 40 MG VIAL IV SCH ×2 (08:21→22:34)
[2016-06-08] MEDS: methylPREDNISolone SOD SUCC 125 MG/2ML VIAL IV SCH ×2 (08:21→16:20)
[2016-06-08] MEDS: FAMOTIDINE (20 MG) 20 MG TABLET PO SCH (08:52)
[2016-06-08] MEDS: ESCITALOPRAM OXALATE (10 MG) 10 MG TABLET PO SCH (08:52)
[2016-06-08] MEDS: LACTOBACILLUS RHAMNOSUS GG 1 EACH CAP.SPRINK PO SCH ×2 (08:52→16:35)
[2016-06-08] MEDS ORDERED: IV SET PRIMARY PUMP SET 1 EA INFUS.SET MC ONE ×2 (09:32→23:46)
[2016-06-08] MEDS: IV D5/ 0.9% NACL 1,000 ML IV SCH (09:55)
[2016-06-08 10:46] LABS: LACTIC ACID 3.2 mmol/L (0.4-2.0)
[2016-06-08 10:58] LABS: *LACTIC ACID REFLEX FLAG YES
[2016-06-08] MEDS ORDERED: POTASSIUM CL. PREMIX PERIPHER. 50 ML IV SCH (11:00)
[2016-06-08] MEDS: IV 1/2NS 1000 ML 1,000 ML IV PRN (11:12)
[2016-06-08] MEDS: VANCOMYCIN 1 GM in IV D5W 250 ML IV SCH (11:12)
[2016-06-08 12:07] LABS: BILIRUBIN,DIRECT 0.1 mg/dL (0.0-0.2); BILIRUBIN,TOTAL 0.4 mg/dL (0.2-1.0)
[2016-06-08] MEDS ORDERED: SECONDARY IV SET 1 EA INFUS.SET MC ONE ×3 (12:27→16:14)
[2016-06-08] MEDS ORDERED: LEVOFLOXACIN 500 MG /D5W 100ML 500 MG in PREMIX 1 EA IV SCH (13:00)
[2016-06-08] MEDS ORDERED: CEFEPIME 1 GM in IV D5W 50 ML IV SCH (14:00)
[2016-06-08 16:07] LABS: ADD UA MICROSCOPIC NO; KETONES,URINE NEGATIVE (NEGATIVE); LEUKOCYTE ESTERASE ,URINE NEGATIVE (NEGATIVE)
[2016-06-08] MEDS: MEROPENEM 1 G in IV NS 0.9% 100 ML IV SCH ×2 (16:19→20:14)
[2016-06-08] MEDS ORDERED: BLOOD IV SET 1 EA INFUS.SET MC ONE (16:39)
[2016-06-08] MEDS ORDERED: IV NS 0.9% 250 ML IV ONE (16:40)
[2016-06-08] MEDS: MORPHINE SULFATE INJ 2 MG/ML DISP.SYRIN IV PRN (18:25)
[2016-06-08] MEDS ORDERED: CEFEPIME 1 GM VIAL IM SCH (21:00)
[2016-06-08] MEDS: INSULIN DETEMIR 100 UNIT/ML CARTRIDGE SQ SCH (21:31)
[2016-06-08] MEDS ORDERED: INSULIN GLARGINE, 100 UNIT/ML CARTRIDGE SQ SCH (22:00)
[2016-06-09] VITALS (73 sets, daily range): BP systolic 72–142; BP diastolic 45–98
[2016-06-09] MEDS: PROPOFOL 100 ML IV PRN ×5 (00:40→23:43)
[2016-06-09 01:08] LABS: HEMOGLOBIN 9.4 g/dL (11.5-14.8)
[2016-06-09] MEDS: MEROPENEM 1 G in IV NS 0.9% 100 ML IV SCH ×3 (02:54→20:31)
[2016-06-09] MEDS: ALBUTEROL FS 2.5 MG/3 ML VIAL.NEB NEB SCH ×6 (03:38→23:42)
[2016-06-09] MEDS: IPRATROPIUM NEB FS 0.5 MG/2.5 ML AMPUL.NEB NEB SCH ×6 (03:38→23:42)
[2016-06-09 04:51] LABS: BASOPHILS # (AUTO) 0.1 /CMM (0.0-0.2); BASOPHILS % (AUTO) 0.3 % (0.0-2.0); DIFF TOTAL % 100 %; HEMATOCRIT 29 % (33-45); HEMOGLOBIN 9.8 g/dL (11.5-14.8); LYMPHOCYTES # (AUTO) 1.4 /CMM (0.8-4.8); LYMPHOCYTES % (AUTO) 3.4 % (20.0-44.0); MEAN CORPUSCULAR HEMOGLOBIN 29 PG (26.0-33.0); MEAN CORPUSCULAR HGB CONC 33 g/dl (31.0-36.0); MEAN CORPUSCULAR VOLUME 87 fL (82-100); MONOCYTES # (AUTO) 1.2 /CMM (0.1-1.30); NEUTROPHILS # (AUTO) 38.7 /CMM (1.8-8.9); NEUTROPHILS % (AUTO) 93.3 % (43.0-81.0); PLATELET COUNT (AUTO) 159 /CMM (150-450); RED BLOOD CELL COUNT(AUTO) 3.37 MIL/uL (4.0-5.2)
[2016-06-09 05:05] LABS: CALCIUM, SERUM 7.3 mg/dL (8.5-10.1); CREATININE 1.6 mg/dL (0.6-1.3); POTASSIUM 3.9 mmol/L (3.5-5.1)
[2016-06-09 05:08] LABS: DIGOXIN 1.64 ng/mL (0.90-2.00)
[2016-06-09 05:14] LABS: WHITE BLOOD COUNT (AUTO) 41.5 K/uL (4.3-11.0)
[2016-06-09 05:34] LABS: LYMPHOCYTES % (MANUAL) 3 % (16-48); PLATELET ESTIMATE ADEQUATE
[2016-06-09 05:35] LABS: ANISOCYTOSIS 1+
[2016-06-09] MEDS: IV 1/2NS 1000 ML 1,000 ML IV PRN (06:16)
[2016-06-09] MEDS: SUCRALFATE 1 G/10 ML UDC GT SCH ×4 (07:30→20:31)
[2016-06-09] MEDS: ACETYLCYSTEINE 10% SOLN 400 MG/4 ML VIAL NEB SCH ×3 (07:50→23:42)
[2016-06-09] MEDS ORDERED: IV SET PRIMARY PUMP SET 1 EA INFUS.SET MC ONE ×3 (07:53→19:07)
[2016-06-09] MEDS: PANTOPRAZOLE 40 MG VIAL IV SCH ×2 (08:02→20:31)
[2016-06-09] MEDS: FAMOTIDINE (20 MG) 20 MG TABLET PO SCH (08:03)
[2016-06-09] MEDS: LACTOBACILLUS RHAMNOSUS GG 1 EACH CAP.SPRINK PO SCH ×2 (08:03→16:06)
[2016-06-09] MEDS: ESCITALOPRAM OXALATE (10 MG) 10 MG TABLET PO SCH (08:03)
[2016-06-09] MEDS: methylPREDNISolone SOD SUCC 125 MG/2ML VIAL IV SCH ×2 (08:03→16:26)
[2016-06-09] MEDS: IV D5W 1,000 ML IV PRN (09:17)
[2016-06-09] MEDS: VANCOMYCIN 1 GM in IV D5W 250 ML IV SCH (09:18)
[2016-06-09] MEDS: Z GUARD REMEDY 2 OZ OINT TP SCH (13:16)
[2016-06-09] MEDS ORDERED: ANESTHESIA TRAY IN PYXIS 1 EA TRAY MC ONE (14:46)
[2016-06-09] MEDS ORDERED: EPINEPHRINE (1:10,000) SYRINGE 1 MG/10 ML DISP.SYRIN ONE (14:47)
[2016-06-09] MEDS: MORPHINE SULFATE INJ 2 MG/ML DISP.SYRIN IV PRN (15:15)
[2016-06-09 16:52] LABS: HEMOGLOBIN 8.4 g/dL (11.5-14.8)
[2016-06-09] MEDS ORDERED: BLOOD IV SET 1 EA INFUS.SET MC ONE ×2 (17:59→21:15)
[2016-06-09] MEDS: NOREPINEPHRINE 16 MG in IV D5W 500 ML IV PRN (20:30)
[2016-06-09] MEDS: INSULIN DETEMIR 100 UNIT/ML CARTRIDGE SQ SCH (20:41)
[2016-06-09] MEDS ORDERED: IV NS 0.9% 250 ML IV ONE (21:15)
[2016-06-10] VITALS (117 sets, daily range): BP systolic 74–159; BP diastolic 38–112
[2016-06-10] MEDS: ALBUTEROL FS 2.5 MG/3 ML VIAL.NEB NEB SCH ×6 (03:33→23:58)
[2016-06-10] MEDS: IPRATROPIUM NEB FS 0.5 MG/2.5 ML AMPUL.NEB NEB SCH ×6 (03:33→23:58)
[2016-06-10 04:55] LABS: DIFF TOTAL % 100 %; HEMATOCRIT 29 % (33-45); HEMOGLOBIN 9.7 g/dL (11.5-14.8); LYMPHOCYTES # (AUTO) 0.9 /CMM (0.8-4.8); MEAN CORPUSCULAR HEMOGLOBIN 29 PG (26.0-33.0); MEAN CORPUSCULAR HGB CONC 33 g/dl (31.0-36.0); MEAN CORPUSCULAR VOLUME 87 fL (82-100); MONOCYTES # (AUTO) 2.4 /CMM (0.1-1.30); MONOCYTES % (AUTO) 5.3 % (2.0-12.0); NEUTROPHILS # (AUTO) 41.4 /CMM (1.8-8.9); NEUTROPHILS % (AUTO) 92.7 % (43.0-81.0); PLATELET COUNT (AUTO) 164 /CMM (150-450); RED BLOOD CELL COUNT(AUTO) 3.38 MIL/uL (4.0-5.2)
[2016-06-10] MEDS: MEROPENEM 1 G in IV NS 0.9% 100 ML IV SCH ×3 (05:05→21:40)
[2016-06-10 05:08] LABS: ALBUMIN 1.8 g/dL (3.4-5.0); BILIRUBIN,TOTAL 0.4 mg/dL (0.2-1.0); CALCIUM, SERUM 7.7 mg/dL (8.5-10.1); CREATININE 1.4 mg/dL (0.6-1.3); PHOSPHORUS 4.9 mg/dL (2.5-4.9); POTASSIUM 3.8 mmol/L (3.5-5.1); TOTAL PROTEIN, SERUM 4.1 g/dL (6.4-8.2)
[2016-06-10] MEDS: PROPOFOL 100 ML IV PRN ×3 (05:10→18:36)
[2016-06-10 05:30] LABS: WHITE BLOOD COUNT (AUTO) 44.7 K/uL (4.3-11.0)
[2016-06-10 05:52] LABS: BAND % (MANUAL) 4 % (0.0-5.0); LYMPHOCYTES % (MANUAL) 2 % (16-48); PLATELET ESTIMATE ADEQUATE
[2016-06-10 05:53] LABS: ANISOCYTOSIS 1+
[2016-06-10] MEDS: ACETYLCYSTEINE 10% SOLN 400 MG/4 ML VIAL NEB SCH ×3 (07:47→23:58)
[2016-06-10] MEDS ORDERED: IV SET PRIMARY PUMP SET 1 EA INFUS.SET MC ONE ×4 (08:04→21:22)
[2016-06-10] MEDS ORDERED: BUMETANIDE INJ 8 MG in IV NS 0.9% 48 ML IV ONE (08:30)
[2016-06-10 08:55] LABS: ABG BASE EXCESS 0.9 mmol/L; ABG HCO3 24.8 mmol/L; ABG PCO2 36.8 mmHg (35.0-45.0); ABG PH 7.447 (7.350-7.450); ABG PO2 72.7 mmHg (75.0-100.0); ABG TOTAL HEMOGLOBIN 10.4 G/dL (12.0-16.0); ALLEN TEST Pass; AaDO2 170.2 mmHg; O2Hb 92.8 % (94.0-97.0)
[2016-06-10] MEDS ORDERED: METOLAZONE 2.5 MG TABLET PO SCH (09:00)
[2016-06-10] MEDS: SUCRALFATE 1 G/10 ML UDC GT SCH ×4 (09:37→21:41)
[2016-06-10] MEDS: methylPREDNISolone SOD SUCC 125 MG/2ML VIAL IV SCH (09:38)
[2016-06-10] MEDS: PANTOPRAZOLE 40 MG VIAL IV SCH ×2 (09:38→21:40)
[2016-06-10] MEDS: Z GUARD REMEDY 2 OZ OINT TP SCH (09:39)
[2016-06-10] MEDS: IV D5W 1,000 ML IV PRN (12:41)
[2016-06-10] MEDS: ALBUMIN 25% 25 GM in PREMIX 1 EA IV SCH ×2 (12:41→18:20)
[2016-06-10] MEDS ORDERED: PHENYLEPHRINE 20 MG in IV D5W 250 ML IV PRN (16:00)
[2016-06-10] MEDS: PHENYLEPHRINE 80 MG in IV D5W 250 ML IV PRN (19:26)
[2016-06-10] MEDS: INSULIN DETEMIR 100 UNIT/ML CARTRIDGE SQ SCH (21:57)
[2016-06-11] VITALS (79 sets, daily range): BP systolic 73–152; BP diastolic 44–106
[2016-06-11] MEDS: ALBUMIN 25% 25 GM in PREMIX 1 EA IV SCH ×2 (00:08→06:20)
[2016-06-11] MEDS: PROPOFOL 100 ML IV PRN ×2 (02:00→07:35)
[2016-06-11] MEDS: ALBUTEROL FS 2.5 MG/3 ML VIAL.NEB NEB SCH ×6 (03:30→20:02)
[2016-06-11] MEDS: IPRATROPIUM NEB FS 0.5 MG/2.5 ML AMPUL.NEB NEB SCH ×6 (03:30→20:02)
[2016-06-11 04:56] LABS: BASOPHILS % (AUTO) 0.1 % (0.0-2.0); DIFF TOTAL % 100 %; EOSINOPHILS % (AUTO) 0.1 % (0.0-6.0); HEMATOCRIT 25 % (33-45); HEMOGLOBIN 8.3 g/dL (11.5-14.8); LYMPHOCYTES # (AUTO) 0.6 /CMM (0.8-4.8); LYMPHOCYTES % (AUTO) 2.1 % (20.0-44.0); MEAN CORPUSCULAR HEMOGLOBIN 29 PG (26.0-33.0); MEAN CORPUSCULAR HGB CONC 34 g/dl (31.0-36.0); MEAN CORPUSCULAR VOLUME 87 fL (82-100); MONOCYTES # (AUTO) 0.7 /CMM (0.1-1.30); MONOCYTES % (AUTO) 2.4 % (2.0-12.0); NEUTROPHILS # (AUTO) 29.4 /CMM (1.8-8.9); NEUTROPHILS % (AUTO) 95.3 % (43.0-81.0); PLATELET COUNT (AUTO) 137 /CMM (150-450); RED BLOOD CELL COUNT(AUTO) 2.82 MIL/uL (4.0-5.2)
[2016-06-11 05:07] LABS: CALCIUM, SERUM 8.1 mg/dL (8.5-10.1); CREATININE 1.1 mg/dL (0.6-1.3); PHOSPHORUS 3.5 mg/dL (2.5-4.9); POTASSIUM 3.8 mmol/L (3.5-5.1)
[2016-06-11] MEDS: MEROPENEM 1 G in IV NS 0.9% 100 ML IV SCH ×3 (05:11→21:44)
[2016-06-11 05:17] LABS: WHITE BLOOD COUNT (AUTO) 30.8 K/uL (4.3-11.0)
[2016-06-11] MEDS ORDERED: BUMETANIDE INJ 8 MG in IV NS 0.9% 48 ML IV ONE (06:00)
[2016-06-11] MEDS ORDERED: BUMETANIDE INJ 0.25 MG/ML VIAL ONE ×2 (06:02)
[2016-06-11] MEDS ORDERED: IV NS 0.9% 50 ML IV ONE (06:03)
[2016-06-11] MEDS ORDERED: ALBUMIN 25% 100 ML IV ONE (06:04)
[2016-06-11 06:08] LABS: BAND % (MANUAL) 9 % (0.0-5.0); BASOPHILS % (MANUAL) 0 % (0.0-2.0); EOSINOPHILS % (MANUAL) 0 % (0-4); LYMPHOCYTES % (MANUAL) 3 % (16-48)
[2016-06-11 06:09] LABS: ANISOCYTOSIS 1+; MICROCYTOSIS 1+; PLATELET ESTIMATE DECREASED
[2016-06-11] MEDS ORDERED: IV SET PRIMARY PUMP SET 1 EA INFUS.SET MC ONE (06:22)
[2016-06-11] MEDS: SUCRALFATE 1 G/10 ML UDC GT SCH ×4 (07:30→21:37)
[2016-06-11] MEDS: ACETYLCYSTEINE 10% SOLN 400 MG/4 ML VIAL NEB SCH ×2 (07:56→15:13)
[2016-06-11] MEDS: methylPREDNISolone SOD SUCC 125 MG/2ML VIAL IV SCH (08:23)
[2016-06-11] MEDS: PANTOPRAZOLE 40 MG VIAL IV SCH ×2 (08:23→21:44)
[2016-06-11] MEDS: IV D5W 1,000 ML IV PRN (08:24)
[2016-06-11] MEDS ORDERED: BLOOD IV SET 1 EA INFUS.SET MC ONE (09:06)
[2016-06-11] MEDS ORDERED: IV NS 0.9% 250 ML IV ONE (09:07)
[2016-06-11] MEDS: Z GUARD REMEDY 2 OZ OINT TP SCH (11:09)
[2016-06-11] MEDS: DIGOXIN INJ 0.5 MG/2 ML AMPUL IV SCH (12:42)
[2016-06-11] MEDS: INSULIN DETEMIR 100 UNIT/ML CARTRIDGE SQ SCH (21:49)
[2016-06-12] VITALS (62 sets, daily range): BP systolic 59–136; BP diastolic 36–96
[2016-06-12] MEDS: ACETYLCYSTEINE 10% SOLN 400 MG/4 ML VIAL NEB SCH ×4 (00:07→23:04)
[2016-06-12] MEDS: ALBUTEROL FS 2.5 MG/3 ML VIAL.NEB NEB SCH ×7 (00:07→23:04)
[2016-06-12] MEDS: IPRATROPIUM NEB FS 0.5 MG/2.5 ML AMPUL.NEB NEB SCH ×7 (00:07→23:04)
[2016-06-12] MEDS: IV D5W 1,000 ML IV PRN (03:06)
[2016-06-12 04:56] LABS: DIFF TOTAL % 100 %; EOSINOPHILS % (AUTO) 0.1 % (0.0-6.0); HEMATOCRIT 33 % (33-45); HEMOGLOBIN 11.1 g/dL (11.5-14.8); LYMPHOCYTES # (AUTO) 0.6 /CMM (0.8-4.8); LYMPHOCYTES % (AUTO) 2.1 % (20.0-44.0); MEAN CORPUSCULAR HEMOGLOBIN 30 PG (26.0-33.0); MEAN CORPUSCULAR HGB CONC 34 g/dl (31.0-36.0); MEAN CORPUSCULAR VOLUME 90 fL (82-100); MONOCYTES # (AUTO) 1.3 /CMM (0.1-1.30); MONOCYTES % (AUTO) 4.4 % (2.0-12.0); NEUTROPHILS # (AUTO) 28.2 /CMM (1.8-8.9); NEUTROPHILS % (AUTO) 93.4 % (43.0-81.0); PLATELET COUNT (AUTO) 128 /CMM (150-450); RED BLOOD CELL COUNT(AUTO) 3.68 MIL/uL (4.0-5.2)
[2016-06-12 05:03] LABS: WHITE BLOOD COUNT (AUTO) 30.2 K/uL (4.3-11.0)
[2016-06-12 05:14] LABS: CALCIUM, SERUM 8.7 mg/dL (8.5-10.1); CREATININE 1.3 mg/dL (0.6-1.3); PHOSPHORUS 3.9 mg/dL (2.5-4.9); POTASSIUM 3.4 mmol/L (3.5-5.1)
[2016-06-12] MEDS: MEROPENEM 1 G in IV NS 0.9% 100 ML IV SCH ×3 (05:34→20:01)
[2016-06-12 05:56] LABS: ANISOCYTOSIS 1+; BAND % (MANUAL) 5 % (0.0-5.0); BASOPHILS % (MANUAL) 0 % (0.0-2.0); EOSINOPHILS % (MANUAL) 0 % (0-4); LYMPHOCYTES % (MANUAL) 2 % (16-48); PLATELET ESTIMATE DECREASED
[2016-06-12 05:57] LABS: STOMATOCYTES 2+
[2016-06-12] MEDS: SUCRALFATE 1 G/10 ML UDC GT SCH ×4 (07:30→20:59)
[2016-06-12] MEDS: PANTOPRAZOLE 40 MG VIAL IV SCH ×2 (08:30→20:01)
[2016-06-12] MEDS: methylPREDNISolone SOD SUCC 125 MG/2ML VIAL IV SCH (08:30)
[2016-06-12] MEDS: Z GUARD REMEDY 2 OZ OINT TP SCH (08:31)
[2016-06-12 10:07] LABS: ALBUMIN 3.2 g/dL (3.4-5.0); BILIRUBIN,DIRECT 0.2 mg/dL (0.0-0.2); BILIRUBIN,TOTAL 1.1 mg/dL (0.2-1.0); INDIRECT BILIRUBIN 0.9 mg/dL (0.0-1.1); TOTAL PROTEIN, SERUM 5.5 g/dL (6.4-8.2)
[2016-06-12] MEDS ORDERED: IV SET PRIMARY PUMP SET 1 EA INFUS.SET MC ONE ×2 (10:23→12:06)
[2016-06-12] MEDS: PROPOFOL 100 ML IV PRN ×2 (10:26→20:02)
[2016-06-12] MEDS: CLOTRIMAZOLE 1% 15 GM TUBE TP SCH ×2 (10:36→17:00)
[2016-06-12] MEDS ORDERED: SECONDARY IV SET 1 EA INFUS.SET MC ONE (12:00)
[2016-06-12] MEDS: PHENYLEPHRINE 80 MG in IV D5W 250 ML IV PRN ×2 (12:14→21:00)
[2016-06-12] MEDS: DIGOXIN INJ 0.5 MG/2 ML AMPUL IV SCH (12:15)
[2016-06-12] MEDS: POTASSIUM CL. PREMIX PERIPHER. 50 ML IV SCH ×4 (12:15→16:07)
[2016-06-12 13:21] LABS: HEPATITIS C VIRUS AB <0.1 s/co ratio (0.0-0.9)
[2016-06-12] MEDS: INSULIN DETEMIR 100 UNIT/ML CARTRIDGE SQ SCH (21:39)
[2016-06-13] VITALS (68 sets, daily range): BP systolic 66–136; BP diastolic 37–95
[2016-06-13] MEDS: IPRATROPIUM NEB FS 0.5 MG/2.5 ML AMPUL.NEB NEB SCH ×6 (03:03→23:42)
[2016-06-13] MEDS: ALBUTEROL FS 2.5 MG/3 ML VIAL.NEB NEB SCH ×6 (03:03→23:42)
[2016-06-13] MEDS: IV D5W 1,000 ML IV PRN ×2 (03:13→18:46)
[2016-06-13 04:24] LABS: CALCIUM, SERUM 8.2 mg/dL (8.5-10.1); CREATININE 1.1 mg/dL (0.6-1.3); PHOSPHORUS 3.2 mg/dL (2.5-4.9); POTASSIUM 3.8 mmol/L (3.5-5.1)
[2016-06-13 04:29] LABS: BASOPHILS # (AUTO) 0.1 /CMM (0.0-0.2); BASOPHILS % (AUTO) 0.3 % (0.0-2.0); DIFF TOTAL % 100 %; HEMATOCRIT 32 % (33-45); HEMOGLOBIN 10.4 g/dL (11.5-14.8); LYMPHOCYTES # (AUTO) 0.8 /CMM (0.8-4.8); LYMPHOCYTES % (AUTO) 2.7 % (20.0-44.0); MEAN CORPUSCULAR HEMOGLOBIN 30 PG (26.0-33.0); MEAN CORPUSCULAR HGB CONC 33 g/dl (31.0-36.0); MEAN CORPUSCULAR VOLUME 90 fL (82-100); MONOCYTES # (AUTO) 0.9 /CMM (0.1-1.30); PLATELET COUNT (AUTO) 155 /CMM (150-450); RED BLOOD CELL COUNT(AUTO) 3.53 MIL/uL (4.0-5.2); WHITE BLOOD COUNT (AUTO) 30.8 K/uL (4.3-11.0)
[2016-06-13 05:36] LABS: ANISOCYTOSIS 1+; BAND % (MANUAL) 1 % (0.0-5.0); BASOPHILS % (MANUAL) 0 % (0.0-2.0); EOSINOPHILS % (MANUAL) 0 % (0-4); LYMPHOCYTES % (MANUAL) 1 % (16-48); PLATELET ESTIMATE DECREASED
[2016-06-13] MEDS: MEROPENEM 1 G in IV NS 0.9% 100 ML IV SCH ×3 (06:31→21:35)
[2016-06-13] MEDS: SUCRALFATE 1 G/10 ML UDC GT SCH ×4 (07:30→21:36)
[2016-06-13] MEDS: ACETYLCYSTEINE 10% SOLN 400 MG/4 ML VIAL NEB SCH ×3 (07:31→23:42)
[2016-06-13] MEDS: PANTOPRAZOLE 40 MG VIAL IV SCH ×2 (08:22→21:36)
[2016-06-13] MEDS: methylPREDNISolone SOD SUCC 125 MG/2ML VIAL IV SCH (08:22)
[2016-06-13] MEDS: CLOTRIMAZOLE 1% 15 GM TUBE TP SCH ×2 (08:23→18:46)
[2016-06-13] MEDS: Z GUARD REMEDY 2 OZ OINT TP SCH (08:24)
[2016-06-13] MEDS ORDERED: BARIUM SULFATE 98% 135 ML SUSP.RECON PO ONE (11:10)
[2016-06-13] MEDS ORDERED: DIATR MEGLU/DIATRIZOATE SODIUM 30 ML BOTTLE (GASTROGRAPHIN) ONE (11:10)
[2016-06-13] MEDS ORDERED: SECONDARY IV SET 1 EA INFUS.SET MC ONE (12:53)
[2016-06-13] MEDS: DIGOXIN INJ 0.5 MG/2 ML AMPUL IV SCH (12:59)
[2016-06-13] MEDS ORDERED: IV SET PRIMARY PUMP SET 1 EA INFUS.SET MC ONE ×2 (14:24→23:23)
[2016-06-13] MEDS: PHENYLEPHRINE 80 MG in IV D5W 250 ML IV PRN (15:00)
[2016-06-13] MEDS: PROPOFOL 100 ML IV PRN (15:01)
[2016-06-13] MEDS: OSELTAMIVIR PHOSPHATE 75 MG CAPSULE PO SCH (16:41)
[2016-06-13] MEDS: INSULIN DETEMIR 100 UNIT/ML CARTRIDGE SQ SCH (21:40)
[2016-06-14] VITALS (98 sets, daily range): BP systolic 76–146; BP diastolic 38–94
[2016-06-14] MEDS: PROPOFOL 100 ML IV PRN ×2 (01:08→13:52)
[2016-06-14] MEDS: MEROPENEM 1 G in IV NS 0.9% 100 ML IV SCH ×3 (04:13→20:33)
[2016-06-14] MEDS: IPRATROPIUM NEB FS 0.5 MG/2.5 ML AMPUL.NEB NEB SCH ×6 (04:16→23:01)
[2016-06-14] MEDS: ALBUTEROL FS 2.5 MG/3 ML VIAL.NEB NEB SCH ×6 (04:16→23:01)
[2016-06-14 05:08] LABS: BASOPHILS % (AUTO) 0.1 % (0.0-2.0); DIFF TOTAL % 100 %; EOSINOPHILS % (AUTO) 0.1 % (0.0-6.0); HEMATOCRIT 32 % (33-45); HEMOGLOBIN 10.5 g/dL (11.5-14.8); LYMPHOCYTES # (AUTO) 0.9 /CMM (0.8-4.8); LYMPHOCYTES % (AUTO) 3.4 % (20.0-44.0); MEAN CORPUSCULAR HEMOGLOBIN 30 PG (26.0-33.0); MEAN CORPUSCULAR HGB CONC 33 g/dl (31.0-36.0); MEAN CORPUSCULAR VOLUME 91 fL (82-100); MONOCYTES # (AUTO) 1.5 /CMM (0.1-1.30); MONOCYTES % (AUTO) 5.7 % (2.0-12.0); NEUTROPHILS # (AUTO) 23.8 /CMM (1.8-8.9); NEUTROPHILS % (AUTO) 90.7 % (43.0-81.0); PLATELET COUNT (AUTO) 159 /CMM (150-450); RED BLOOD CELL COUNT(AUTO) 3.52 MIL/uL (4.0-5.2); WHITE BLOOD COUNT (AUTO) 26.2 K/uL (4.3-11.0)
[2016-06-14 05:17] LABS: CALCIUM, SERUM 8.2 mg/dL (8.5-10.1); PHOSPHORUS 3.2 mg/dL (2.5-4.9); POTASSIUM 3.7 mmol/L (3.5-5.1)
[2016-06-14] MEDS: PHENYLEPHRINE 80 MG in IV D5W 250 ML IV PRN ×2 (05:56→16:37)
[2016-06-14] MEDS: ACETYLCYSTEINE 10% SOLN 400 MG/4 ML VIAL NEB SCH ×3 (07:18→23:01)
[2016-06-14] MEDS: SUCRALFATE 1 G/10 ML UDC GT SCH ×4 (07:30→21:59)
[2016-06-14] MEDS: CLOTRIMAZOLE 1% 15 GM TUBE TP SCH ×2 (08:46→16:37)
[2016-06-14] MEDS: OSELTAMIVIR PHOSPHATE 75 MG CAPSULE PO SCH ×2 (08:46→16:36)
[2016-06-14] MEDS: PANTOPRAZOLE 40 MG VIAL IV SCH ×2 (08:46→20:32)
[2016-06-14] MEDS: Z GUARD REMEDY 2 OZ OINT TP SCH ×2 (08:46→16:36)
[2016-06-14] MEDS: methylPREDNISolone SOD SUCC 125 MG/2ML VIAL IV SCH (08:47)
[2016-06-14] MEDS ORDERED: IV SET PRIMARY PUMP SET 1 EA INFUS.SET MC ONE ×2 (12:21→23:08)
[2016-06-14] MEDS: DIGOXIN INJ 0.5 MG/2 ML AMPUL IV SCH (12:26)
[2016-06-14] MEDS ORDERED: HYDROGEN PEROXIDE 480 ML BOTTLE TP PRN (15:30)
[2016-06-14] MEDS: BACITRACIN ZINC OINT (15 GM) 15 GM TUBE TP PRN (16:36)
[2016-06-14] MEDS: IV D5W 1,000 ML IV PRN (16:37)
[2016-06-14] MEDS: GLYTROL 1,000 ML BAG GT PRN (20:15)
[2016-06-14] MEDS: INSULIN DETEMIR 100 UNIT/ML CARTRIDGE SQ SCH (22:02)
[2016-06-15] VITALS (107 sets, daily range): BP systolic 63–169; BP diastolic 39–113
[2016-06-15] MEDS: ALBUTEROL FS 2.5 MG/3 ML VIAL.NEB NEB SCH ×6 (03:08→23:20)
[2016-06-15] MEDS: IPRATROPIUM NEB FS 0.5 MG/2.5 ML AMPUL.NEB NEB SCH ×6 (03:08→23:20)
[2016-06-15] MEDS: MEROPENEM 1 G in IV NS 0.9% 100 ML IV SCH ×3 (04:18→21:09)
[2016-06-15 05:08] LABS: BASOPHILS % (AUTO) 0.1 % (0.0-2.0); DIFF TOTAL % 100 %; HEMATOCRIT 33 % (33-45); HEMOGLOBIN 10.7 g/dL (11.5-14.8); LYMPHOCYTES # (AUTO) 0.9 /CMM (0.8-4.8); LYMPHOCYTES % (AUTO) 3.6 % (20.0-44.0); MEAN CORPUSCULAR HEMOGLOBIN 30 PG (26.0-33.0); MEAN CORPUSCULAR HGB CONC 33 g/dl (31.0-36.0); MEAN CORPUSCULAR VOLUME 91 fL (82-100); MONOCYTES # (AUTO) 0.7 /CMM (0.1-1.30); MONOCYTES % (AUTO) 2.7 % (2.0-12.0); NEUTROPHILS # (AUTO) 23.2 /CMM (1.8-8.9); NEUTROPHILS % (AUTO) 93.6 % (43.0-81.0); PLATELET COUNT (AUTO) 175 /CMM (150-450); WHITE BLOOD COUNT (AUTO) 24.8 K/uL (4.3-11.0)
[2016-06-15 05:13] LABS: CALCIUM, SERUM 8.2 mg/dL (8.5-10.1); POTASSIUM 3.6 mmol/L (3.5-5.1)
[2016-06-15 05:48] LABS: ANISOCYTOSIS 1+
[2016-06-15] MEDS: PHENYLEPHRINE 80 MG in IV D5W 250 ML IV PRN ×3 (05:49→22:29)
[2016-06-15] MEDS ORDERED: IV NS 0.9% 500 ML IV ONE (06:15)
[2016-06-15] MEDS ORDERED: IV PREMIX 0.45% NS + KCL 1,000 ML IV ONE (06:44)
[2016-06-15] MEDS: ACETYLCYSTEINE 10% SOLN 400 MG/4 ML VIAL NEB SCH ×3 (07:25→23:20)
[2016-06-15] MEDS: SUCRALFATE 1 G/10 ML UDC GT SCH ×4 (08:39→21:49)
[2016-06-15] MEDS: PANTOPRAZOLE 40 MG VIAL IV SCH ×2 (08:39→21:09)
[2016-06-15] MEDS: AMIODARONE HCL 200 MG TABLET PO SCH ×3 (08:39→17:28)
[2016-06-15] MEDS: methylPREDNISolone SOD SUCC 125 MG/2ML VIAL IV SCH (08:39)
[2016-06-15] MEDS: OSELTAMIVIR PHOSPHATE 75 MG CAPSULE PO SCH ×2 (08:39→17:28)
[2016-06-15] MEDS: Z GUARD REMEDY 2 OZ OINT TP SCH (08:40)
[2016-06-15] MEDS: BACITRACIN ZINC OINT (15 GM) 15 GM TUBE TP PRN (08:40)
[2016-06-15] MEDS: CLOTRIMAZOLE 1% 15 GM TUBE TP SCH ×2 (08:41→17:30)
[2016-06-15] MEDS: PROPOFOL 100 ML IV PRN ×3 (10:19→23:40)
[2016-06-15] MEDS: DIGOXIN ELIX UDC 0.25 MG/5 ML UDC GT SCH (12:11)
[2016-06-15] MEDS ORDERED: IV SET PRIMARY PUMP SET 1 EA INFUS.SET MC ONE (13:47)
[2016-06-15] MEDS: GLYTROL 1,000 ML BAG GT PRN ×2 (17:30→22:27)
[2016-06-15] MEDS: INSULIN DETEMIR 100 UNIT/ML CARTRIDGE SQ SCH (21:59)
[2016-06-16] VITALS (52 sets, daily range): BP systolic 84–137; BP diastolic 41–83
[2016-06-16] MEDS ORDERED: IV SET PRIMARY PUMP SET 1 EA INFUS.SET MC ONE (01:16)
[2016-06-16] MEDS ORDERED: IV NS 0.9% 250 ML IV ONE (03:13)
[2016-06-16] MEDS ORDERED: IV NS 0.9% 250 ML IV PRN (03:30)
[2016-06-16] MEDS: ALBUTEROL FS 2.5 MG/3 ML VIAL.NEB NEB SCH ×5 (03:30→20:12)
[2016-06-16] MEDS: IPRATROPIUM NEB FS 0.5 MG/2.5 ML AMPUL.NEB NEB SCH ×5 (03:30→20:12)
[2016-06-16] MEDS: MEROPENEM 1 G in IV NS 0.9% 100 ML IV SCH ×2 (04:46→12:37)
[2016-06-16 05:05] LABS: CALCIUM, SERUM 7.8 mg/dL (8.5-10.1); CREATININE 0.8 mg/dL (0.6-1.3); PHOSPHORUS 2.6 mg/dL (2.5-4.9); POTASSIUM 4.4 mmol/L (3.5-5.1)
[2016-06-16 05:28] LABS: BASOPHILS % (AUTO) 0.1 % (0.0-2.0); DIFF TOTAL % 100 %; HEMATOCRIT 31 % (33-45); LYMPHOCYTES # (AUTO) 0.7 /CMM (0.8-4.8); LYMPHOCYTES % (AUTO) 2.9 % (20.0-44.0); MEAN CORPUSCULAR HEMOGLOBIN 30 PG (26.0-33.0); MEAN CORPUSCULAR HGB CONC 33 g/dl (31.0-36.0); MEAN CORPUSCULAR VOLUME 91 fL (82-100); MONOCYTES # (AUTO) 0.9 /CMM (0.1-1.30); MONOCYTES % (AUTO) 3.6 % (2.0-12.0); NEUTROPHILS # (AUTO) 23.3 /CMM (1.8-8.9); NEUTROPHILS % (AUTO) 93.4 % (43.0-81.0); PLATELET COUNT (AUTO) 183 /CMM (150-450); RED BLOOD CELL COUNT(AUTO) 3.37 MIL/uL (4.0-5.2); WHITE BLOOD COUNT (AUTO) 24.9 K/uL (4.3-11.0)
[2016-06-16] MEDS: PROPOFOL 100 ML IV PRN ×2 (05:33→17:21)
[2016-06-16] MEDS: OSELTAMIVIR PHOSPHATE 75 MG CAPSULE PO SCH ×2 (08:15→17:22)
[2016-06-16] MEDS: SUCRALFATE 1 G/10 ML UDC GT SCH ×4 (08:15→21:34)
[2016-06-16] MEDS: PANTOPRAZOLE 40 MG VIAL IV SCH ×2 (08:15→21:34)
[2016-06-16] MEDS: AMIODARONE HCL 200 MG TABLET PO SCH ×3 (08:16→17:22)
[2016-06-16] MEDS: methylPREDNISolone SOD SUCC 125 MG/2ML VIAL IV SCH (08:17)
[2016-06-16] MEDS: CLOTRIMAZOLE 1% 15 GM TUBE TP SCH ×2 (08:18→17:22)
[2016-06-16] MEDS: Z GUARD REMEDY 2 OZ OINT TP SCH (08:18)
[2016-06-16] MEDS: BACITRACIN ZINC OINT (15 GM) 15 GM TUBE TP PRN (08:18)
[2016-06-16] MEDS: ACETYLCYSTEINE 10% SOLN 400 MG/4 ML VIAL NEB SCH ×2 (08:28→14:15)
[2016-06-16 08:48] LABS: BILIRUBIN,DIRECT 0.1 mg/dL (0.0-0.2); BILIRUBIN,TOTAL 0.6 mg/dL (0.2-1.0); INDIRECT BILIRUBIN 0.5 mg/dL (0.0-1.1); TOTAL PROTEIN, SERUM 4.8 g/dL (6.4-8.2)
[2016-06-16] MEDS: PHENYLEPHRINE 80 MG in IV D5W 250 ML IV PRN ×2 (10:39→17:21)
[2016-06-16] MEDS: DIGOXIN ELIX UDC 0.25 MG/5 ML UDC GT SCH (12:38)
[2016-06-16] MEDS: GLYTROL 1,000 ML BAG GT PRN (17:31)
[2016-06-16] MEDS: INSULIN DETEMIR 100 UNIT/ML CARTRIDGE SQ SCH (22:02)
[2016-06-17] VITALS (63 sets, daily range): BP systolic 92–135; BP diastolic 52–79
[2016-06-17] MEDS: IPRATROPIUM NEB FS 0.5 MG/2.5 ML AMPUL.NEB NEB SCH ×6 (00:08→20:07)
[2016-06-17] MEDS: ACETYLCYSTEINE 10% SOLN 400 MG/4 ML VIAL NEB SCH ×3 (00:08→15:47)
[2016-06-17] MEDS: ALBUTEROL FS 2.5 MG/3 ML VIAL.NEB NEB SCH ×6 (00:09→20:07)
[2016-06-17] MEDS: MORPHINE SULFATE INJ 2 MG/ML DISP.SYRIN IV PRN (03:09)
[2016-06-17] MEDS ORDERED: IV D5W 250 ML IV ONE (03:42)
[2016-06-17] MEDS ORDERED: IV SET PRIMARY PUMP SET 1 EA INFUS.SET MC ONE ×2 (03:42→08:13)
[2016-06-17] MEDS: ACETAMINOPHEN 650 MG/SUPP.RECT RC PRN (03:47)
[2016-06-17 05:11] LABS: BASOPHILS # (AUTO) 0.2 /CMM (0.0-0.2); BASOPHILS % (AUTO) 0.7 % (0.0-2.0); DIFF TOTAL % 100 %; HEMATOCRIT 30 % (33-45); HEMOGLOBIN 9.8 g/dL (11.5-14.8); LYMPHOCYTES # (AUTO) 0.6 /CMM (0.8-4.8); LYMPHOCYTES % (AUTO) 2.4 % (20.0-44.0); MEAN CORPUSCULAR HEMOGLOBIN 30 PG (26.0-33.0); MEAN CORPUSCULAR HGB CONC 33 g/dl (31.0-36.0); MEAN CORPUSCULAR VOLUME 90 fL (82-100); MONOCYTES # (AUTO) 0.7 /CMM (0.1-1.30); MONOCYTES % (AUTO) 2.6 % (2.0-12.0); NEUTROPHILS # (AUTO) 23.9 /CMM (1.8-8.9); NEUTROPHILS % (AUTO) 94.3 % (43.0-81.0); PLATELET COUNT (AUTO) 170 /CMM (150-450); RED BLOOD CELL COUNT(AUTO) 3.33 MIL/uL (4.0-5.2); WHITE BLOOD COUNT (AUTO) 25.3 K/uL (4.3-11.0)
[2016-06-17 05:30] LABS: CALCIUM, SERUM 7.6 mg/dL (8.5-10.1); CREATININE 0.9 mg/dL (0.6-1.3); PHOSPHORUS 2.5 mg/dL (2.5-4.9); POTASSIUM 4.5 mmol/L (3.5-5.1)
[2016-06-17] MEDS: PHENYLEPHRINE 80 MG in IV D5W 250 ML IV PRN ×3 (05:47→22:01)
[2016-06-17] MEDS: IV NS 0.9% 250 ML IV PRN (05:51)
[2016-06-17 06:07] LABS: INR 1.03 (0.87-1.13); PROTHROMBIN TIME 10.8 SECS (9.5-12.7)
[2016-06-17] MEDS ORDERED: HYDROCORTISONE SOD SUCCINATE 100 MG/2 ML VIAL IV ONE (08:00)
[2016-06-17] MEDS ORDERED: SECONDARY IV SET 1 EA INFUS.SET MC ONE (08:14)
[2016-06-17] MEDS: PANTOPRAZOLE 40 MG VIAL IV SCH ×2 (08:20→21:51)
[2016-06-17] MEDS: GLYTROL 1,000 ML BAG GT PRN (08:20)
[2016-06-17] MEDS: AMIODARONE HCL 200 MG TABLET PO SCH ×3 (08:23→18:12)
[2016-06-17] MEDS: SUCRALFATE 1 G/10 ML UDC GT SCH ×4 (08:24→21:52)
[2016-06-17] MEDS: PROPOFOL 100 ML IV PRN (08:24)
[2016-06-17] MEDS: OSELTAMIVIR PHOSPHATE 75 MG CAPSULE PO SCH ×2 (08:24→18:12)
[2016-06-17] MEDS: MEROPENEM 1 G in IV NS 0.9% 100 ML IV SCH ×2 (08:25→19:38)
[2016-06-17] MEDS: VANCOMYCIN 1 GM in IV D5W 250 ML IV SCH (08:25)
[2016-06-17] MEDS: Z GUARD REMEDY 2 OZ OINT TP SCH (08:29)
[2016-06-17] MEDS: CLOTRIMAZOLE 1% 15 GM TUBE TP SCH ×2 (08:29→18:09)
[2016-06-17 08:53] LABS: KETONES,URINE NEGATIVE (NEGATIVE); LEUKOCYTE ESTERASE ,URINE NEGATIVE (NEGATIVE)
[2016-06-17] MEDS ORDERED: methylPREDNISolone SOD SUCC 125 MG/2ML VIAL IV SCH (09:00)
[2016-06-17] MEDS ORDERED: AMIKACIN 600 MG in IV D5W 100 ML IV SCH (09:00)
[2016-06-17] MEDS ORDERED: DOSING PER PHARMACY-AMIKACI IV XX PRN (09:00)
[2016-06-17 09:21] LABS: ADD UA MICROSCOPIC YES
[2016-06-17] MEDS ORDERED: CASPOFUNGIN 50 MG in IV NS 0.9% 250 ML IV SCH (09:30)
[2016-06-17 10:05] LABS: ADD URINE CULTURE NO; WBC,URINE 0-2 /HPF (0-3)
[2016-06-17] MEDS: MICAFUNGIN SODIUM 100 MG in IV NS 0.9% 100 ML IV SCH (11:49)
[2016-06-17] MEDS: DIGOXIN ELIX UDC 0.25 MG/5 ML UDC GT SCH (12:06)
[2016-06-17] MEDS: ACETAMINOPHEN 650 MG/20.3 ML UDC NG PRN ×2 (13:14→18:12)
[2016-06-17] MEDS ORDERED: FEE PK DOSING 1 MIN EA MC ONE (14:10)
[2016-06-17] MEDS: INSULIN DETEMIR 100 UNIT/ML CARTRIDGE SQ SCH (21:59)
[2016-06-18] VITALS (68 sets, daily range): BP systolic 85–147; BP diastolic 43–86
[2016-06-18] MEDS: IPRATROPIUM NEB FS 0.5 MG/2.5 ML AMPUL.NEB NEB SCH ×7 (00:25→23:14)
[2016-06-18] MEDS: ACETYLCYSTEINE 10% SOLN 400 MG/4 ML VIAL NEB SCH ×4 (00:25→23:14)
[2016-06-18] MEDS: ALBUTEROL FS 2.5 MG/3 ML VIAL.NEB NEB SCH ×7 (00:25→23:15)
[2016-06-18] MEDS: PROPOFOL 100 ML IV PRN ×3 (00:58→17:44)
[2016-06-18] MEDS ORDERED: IV D5W 250 ML IV ONE (01:13)
[2016-06-18] MEDS ORDERED: IV SET PRIMARY PUMP SET 1 EA INFUS.SET MC ONE ×3 (01:13→23:30)
[2016-06-18] MEDS: VANCOMYCIN 1 GM in IV D5W 250 ML IV SCH ×2 (02:08→20:21)
[2016-06-18] MEDS: IV NS 0.9% 250 ML IV PRN (03:45)
[2016-06-18 04:38] LABS: BASOPHILS % (AUTO) 0.2 % (0.0-2.0); DIFF TOTAL % 100 %; HEMATOCRIT 29 % (33-45); HEMOGLOBIN 9.7 g/dL (11.5-14.8); LYMPHOCYTES # (AUTO) 0.6 /CMM (0.8-4.8); LYMPHOCYTES % (AUTO) 2.7 % (20.0-44.0); MEAN CORPUSCULAR HEMOGLOBIN 30 PG (26.0-33.0); MEAN CORPUSCULAR HGB CONC 33 g/dl (31.0-36.0); MEAN CORPUSCULAR VOLUME 90 fL (82-100); MONOCYTES # (AUTO) 0.9 /CMM (0.1-1.30); MONOCYTES % (AUTO) 3.7 % (2.0-12.0); NEUTROPHILS # (AUTO) 22.2 /CMM (1.8-8.9); NEUTROPHILS % (AUTO) 93.4 % (43.0-81.0); PLATELET COUNT (AUTO) 141 /CMM (150-450); RED BLOOD CELL COUNT(AUTO) 3.24 MIL/uL (4.0-5.2); WHITE BLOOD COUNT (AUTO) 23.8 K/uL (4.3-11.0)
[2016-06-18 04:50] LABS: CALCIUM, SERUM 7.2 mg/dL (8.5-10.1); CREATININE 0.9 mg/dL (0.6-1.3); POTASSIUM 4.1 mmol/L (3.5-5.1)
[2016-06-18] MEDS: GLYTROL 1,000 ML BAG GT PRN (07:26)
[2016-06-18] MEDS: SUCRALFATE 1 G/10 ML UDC GT SCH ×4 (07:49→20:52)
[2016-06-18] MEDS: AMIODARONE HCL 200 MG TABLET PO SCH ×3 (08:03→16:21)
[2016-06-18] MEDS: PANTOPRAZOLE 40 MG VIAL IV SCH ×2 (08:03→20:52)
[2016-06-18] MEDS: MEROPENEM 1 G in IV NS 0.9% 100 ML IV SCH ×2 (08:06→19:38)
[2016-06-18] MEDS: OSELTAMIVIR PHOSPHATE 75 MG CAPSULE PO SCH ×2 (08:06→16:20)
[2016-06-18] MEDS: Z GUARD REMEDY 2 OZ OINT TP SCH (08:09)
[2016-06-18] MEDS: CLOTRIMAZOLE 1% 15 GM TUBE TP SCH ×2 (08:09→16:22)
[2016-06-18] MEDS: ACETAMINOPHEN 650 MG/20.3 ML UDC GT PRN ×2 (08:29→14:25)
[2016-06-18 08:58] LABS: ABG BASE EXCESS 0.8 mmol/L; ABG HCO3 24.2 mmol/L; ABG PCO2 33.9 mmHg (35.0-45.0); ABG PH 7.471 (7.350-7.450); ABG PO2 75.9 mmHg (75.0-100.0); ABG TOTAL HEMOGLOBIN 10.5 G/dL (12.0-16.0); ALLEN TEST Pass; AaDO2 242.5 mmHg; O2Hb 93.5 % (94.0-97.0)
[2016-06-18] MEDS ORDERED: methylPREDNISolone SOD SUCC 125 MG/2ML VIAL IV SCH (09:00)
[2016-06-18] MEDS ORDERED: HYDROCORTISONE SOD SUCCINATE 100 MG/2 ML VIAL IV SCH ×2 (09:00→13:00)
[2016-06-18] MEDS: MICAFUNGIN SODIUM 100 MG in IV NS 0.9% 100 ML IV SCH (10:01)
[2016-06-18] MEDS ORDERED: SECONDARY IV SET 1 EA INFUS.SET MC ONE (10:02)
[2016-06-18] MEDS: METOCLOPRAMIDE HCL 10 MG/2 ML VIAL IV SCH ×2 (11:48→17:40)
[2016-06-18] MEDS: DIGOXIN ELIX UDC 0.25 MG/5 ML UDC GT SCH (11:48)
[2016-06-18 13:19] LABS: ALBUMIN 1.8 g/dL (3.4-5.0); BILIRUBIN,DIRECT 0.1 mg/dL (0.0-0.2); BILIRUBIN,TOTAL 0.6 mg/dL (0.2-1.0); INDIRECT BILIRUBIN 0.5 mg/dL (0.0-1.1); TOTAL PROTEIN, SERUM 4.5 g/dL (6.4-8.2)
[2016-06-18] MEDS: PHENYLEPHRINE 80 MG in IV D5W 250 ML IV PRN (16:20)
[2016-06-18] MEDS: HYDROCORTISONE SOD SUCCINATE 100 MG/2 ML VIAL IV SCH (16:21)
[2016-06-18] MEDS: INSULIN DETEMIR 100 UNIT/ML CARTRIDGE SQ SCH (20:55)
[2016-06-19] VITALS (106 sets, daily range): BP systolic 67–136; BP diastolic 28–89
[2016-06-19] MEDS: METOCLOPRAMIDE HCL 10 MG/2 ML VIAL IV SCH ×4 (00:11→16:51)
[2016-06-19] MEDS: IV NS 0.9% 250 ML IV PRN (00:58)
[2016-06-19] MEDS: PHENYLEPHRINE 80 MG in IV D5W 250 ML IV PRN ×2 (00:58→11:57)
[2016-06-19] MEDS: PROPOFOL 100 ML IV PRN (03:10)
[2016-06-19] MEDS: ALBUTEROL FS 2.5 MG/3 ML VIAL.NEB NEB SCH ×6 (03:30→23:11)
[2016-06-19] MEDS: IPRATROPIUM NEB FS 0.5 MG/2.5 ML AMPUL.NEB NEB SCH ×6 (03:30→23:11)
[2016-06-19 04:45] LABS: DIFF TOTAL % 100 %; HEMATOCRIT 30 % (33-45); HEMOGLOBIN 9.7 g/dL (11.5-14.8); LYMPHOCYTES # (AUTO) 0.4 /CMM (0.8-4.8); LYMPHOCYTES % (AUTO) 1.9 % (20.0-44.0); MEAN CORPUSCULAR HEMOGLOBIN 29 PG (26.0-33.0); MEAN CORPUSCULAR HGB CONC 33 g/dl (31.0-36.0); MEAN CORPUSCULAR VOLUME 90 fL (82-100); MONOCYTES # (AUTO) 0.4 /CMM (0.1-1.30); NEUTROPHILS # (AUTO) 21.6 /CMM (1.8-8.9); NEUTROPHILS % (AUTO) 96.1 % (43.0-81.0); PLATELET COUNT (AUTO) 147 /CMM (150-450); RED BLOOD CELL COUNT(AUTO) 3.31 MIL/uL (4.0-5.2); WHITE BLOOD COUNT (AUTO) 22.5 K/uL (4.3-11.0)
[2016-06-19 04:50] LABS: CALCIUM, SERUM 7.7 mg/dL (8.5-10.1); CREATININE 1.1 mg/dL (0.6-1.3); POTASSIUM 3.7 mmol/L (3.5-5.1)
[2016-06-19] MEDS: SUCRALFATE 1 G/10 ML UDC GT SCH ×4 (08:02→22:12)
[2016-06-19] MEDS: MEROPENEM 1 G in IV NS 0.9% 100 ML IV SCH ×2 (08:02→19:58)
[2016-06-19] MEDS: AMIODARONE HCL 200 MG TABLET PO SCH ×3 (08:03→16:52)
[2016-06-19] MEDS: PANTOPRAZOLE 40 MG VIAL IV SCH ×2 (08:03→22:13)
[2016-06-19] MEDS: HYDROCORTISONE SOD SUCCINATE 100 MG/2 ML VIAL IV SCH ×3 (08:03→16:51)
[2016-06-19] MEDS: OSELTAMIVIR PHOSPHATE 75 MG CAPSULE PO SCH ×2 (08:03→16:51)
[2016-06-19] MEDS: CLOTRIMAZOLE 1% 15 GM TUBE TP SCH ×2 (08:05→16:52)
[2016-06-19] MEDS: Z GUARD REMEDY 2 OZ OINT TP SCH (08:05)
[2016-06-19] MEDS: ACETYLCYSTEINE 10% SOLN 400 MG/4 ML VIAL NEB SCH ×3 (08:17→23:11)
[2016-06-19] MEDS: ACETAMINOPHEN 650 MG/20.3 ML UDC GT PRN ×2 (09:42→16:53)
[2016-06-19] MEDS: MICAFUNGIN SODIUM 100 MG in IV NS 0.9% 100 ML IV SCH (11:57)
[2016-06-19] MEDS: DIGOXIN ELIX UDC 0.25 MG/5 ML UDC GT SCH (12:36)
[2016-06-19] MEDS: VANCOMYCIN 1 GM in IV D5W 250 ML IV SCH (14:41)
[2016-06-19] MEDS: GLYTROL 1,000 ML BAG GT PRN (17:52)
[2016-06-19] MEDS: INSULIN DETEMIR 100 UNIT/ML CARTRIDGE SQ SCH (22:14)
[2016-06-20] VITALS (89 sets, daily range): BP systolic 66–134; BP diastolic 32–91
[2016-06-20] MEDS: METOCLOPRAMIDE HCL 10 MG/2 ML VIAL IV SCH ×5 (00:47→23:57)
[2016-06-20] MEDS: IV NS 0.9% 250 ML IV PRN (01:50)
[2016-06-20] MEDS: ALBUTEROL FS 2.5 MG/3 ML VIAL.NEB NEB SCH ×6 (03:37→23:14)
[2016-06-20] MEDS: IPRATROPIUM NEB FS 0.5 MG/2.5 ML AMPUL.NEB NEB SCH ×6 (03:37→23:14)
[2016-06-20 04:56] LABS: BASOPHILS # (AUTO) 0.1 /CMM (0.0-0.2); BASOPHILS % (AUTO) 0.6 % (0.0-2.0); DIFF TOTAL % 100 %; EOSINOPHILS % (AUTO) 0.2 % (0.0-6.0); HEMATOCRIT 28 % (33-45); HEMOGLOBIN 9.2 g/dL (11.5-14.8); LYMPHOCYTES # (AUTO) 0.4 /CMM (0.8-4.8); MEAN CORPUSCULAR HEMOGLOBIN 30 PG (26.0-33.0); MEAN CORPUSCULAR HGB CONC 33 g/dl (31.0-36.0); MEAN CORPUSCULAR VOLUME 90 fL (82-100); MONOCYTES # (AUTO) 0.2 /CMM (0.1-1.30); MONOCYTES % (AUTO) 1.5 % (2.0-12.0); NEUTROPHILS # (AUTO) 13.2 /CMM (1.8-8.9); NEUTROPHILS % (AUTO) 94.7 % (43.0-81.0); PLATELET COUNT (AUTO) 115 /CMM (150-450); WHITE BLOOD COUNT (AUTO) 13.9 K/uL (4.3-11.0)
[2016-06-20 05:37] LABS: ALBUMIN 1.6 g/dL (3.4-5.0); BILIRUBIN,TOTAL 0.6 mg/dL (0.2-1.0); CALCIUM, SERUM 7.7 mg/dL (8.5-10.1); CREATININE 1.4 mg/dL (0.6-1.3); TOTAL PROTEIN, SERUM 4.5 g/dL (6.4-8.2)
[2016-06-20] MEDS: ACETYLCYSTEINE 10% SOLN 400 MG/4 ML VIAL NEB SCH ×3 (07:18→23:14)
[2016-06-20] MEDS: HYDROCORTISONE SOD SUCCINATE 100 MG/2 ML VIAL IV SCH ×3 (08:28→16:35)
[2016-06-20] MEDS: AMIODARONE HCL 200 MG TABLET PO SCH ×3 (08:28→16:35)
[2016-06-20] MEDS: SUCRALFATE 1 G/10 ML UDC GT SCH ×4 (08:28→21:51)
[2016-06-20] MEDS: OSELTAMIVIR PHOSPHATE 75 MG CAPSULE PO SCH ×2 (08:29→16:35)
[2016-06-20] MEDS: Z GUARD REMEDY 2 OZ OINT TP SCH (08:29)
[2016-06-20] MEDS: PANTOPRAZOLE 40 MG VIAL IV SCH ×2 (08:29→20:22)
[2016-06-20] MEDS: CLOTRIMAZOLE 1% 15 GM TUBE TP SCH ×2 (08:30→16:36)
[2016-06-20] MEDS: MEROPENEM 1 G in IV NS 0.9% 100 ML IV SCH ×2 (08:31→20:04)
[2016-06-20] MEDS: VANCOMYCIN 1 GM in IV D5W 250 ML IV SCH (09:34)
[2016-06-20] MEDS ORDERED: SECONDARY IV SET 1 EA INFUS.SET MC ONE ×3 (09:37→16:31)
[2016-06-20] MEDS: MICAFUNGIN SODIUM 100 MG in IV NS 0.9% 100 ML IV SCH (11:01)
[2016-06-20] MEDS: DIGOXIN ELIX UDC 0.25 MG/5 ML UDC GT SCH (12:58)
[2016-06-20] MEDS ORDERED: SULFAMETHOXAZOLE/TRIMETHOPRIM 10 ML in IV D5W 250 ML IV SCH (13:30)
[2016-06-20] MEDS: ALBUMIN 25% 25 GM in PREMIX 1 EA IV SCH ×2 (14:04→18:04)
[2016-06-20] MEDS: SULFAMETHOXAZOLE/TRIMETHOPRIM 15 ML in IV D5W 250 ML IV SCH ×2 (16:35→23:59)
[2016-06-20] MEDS: AZITHROMYCIN 500 MG in IV D5W 250 ML IV SCH (16:35)
[2016-06-20] MEDS: GLYTROL 1,000 ML BAG GT PRN (18:04)
[2016-06-20] MEDS: PHENYLEPHRINE 80 MG in IV D5W 250 ML IV PRN (18:05)
[2016-06-20] MEDS ORDERED: IV SET PRIMARY PUMP SET 1 EA INFUS.SET MC ONE ×2 (18:10→18:16)
[2016-06-20] MEDS: INSULIN DETEMIR 100 UNIT/ML CARTRIDGE SQ SCH (22:04)
[2016-06-21] VITALS (66 sets, daily range): BP systolic 88–151; BP diastolic 39–85
[2016-06-21] MEDS: IV NS 0.9% 250 ML IV PRN (01:06)
[2016-06-21] MEDS: ALBUMIN 25% 25 GM in PREMIX 1 EA IV SCH ×2 (01:06→06:09)
[2016-06-21] MEDS: IPRATROPIUM NEB FS 0.5 MG/2.5 ML AMPUL.NEB NEB SCH ×6 (03:41→23:40)
[2016-06-21] MEDS: ALBUTEROL FS 2.5 MG/3 ML VIAL.NEB NEB SCH ×6 (03:41→23:40)
[2016-06-21 04:57] LABS: DIFF TOTAL % 100 %; HEMATOCRIT 24 % (33-45); HEMOGLOBIN 7.7 g/dL (11.5-14.8); LYMPHOCYTES # (AUTO) 0.1 /CMM (0.8-4.8); LYMPHOCYTES % (AUTO) 1.3 % (20.0-44.0); MEAN CORPUSCULAR HEMOGLOBIN 29 PG (26.0-33.0); MEAN CORPUSCULAR HGB CONC 33 g/dl (31.0-36.0); MEAN CORPUSCULAR VOLUME 89 fL (82-100); MONOCYTES # (AUTO) 0.1 /CMM (0.1-1.30); MONOCYTES % (AUTO) 1.6 % (2.0-12.0); NEUTROPHILS # (AUTO) 9.3 /CMM (1.8-8.9); NEUTROPHILS % (AUTO) 97.1 % (43.0-81.0); PLATELET COUNT (AUTO) 102 /CMM (150-450); RED BLOOD CELL COUNT(AUTO) 2.67 MIL/uL (4.0-5.2); WHITE BLOOD COUNT (AUTO) 9.6 K/uL (4.3-11.0)
[2016-06-21 05:22] LABS: CALCIUM, SERUM 8.2 mg/dL (8.5-10.1); CREATININE 1.3 mg/dL (0.6-1.3); PHOSPHORUS 3.2 mg/dL (2.5-4.9); POTASSIUM 3.4 mmol/L (3.5-5.1)
[2016-06-21] MEDS: METOCLOPRAMIDE HCL 10 MG/2 ML VIAL IV SCH ×4 (06:09→23:55)
[2016-06-21] MEDS ORDERED: IV NS 0.9% 500 ML IV ONE (06:39)
[2016-06-21] MEDS ORDERED: POTASSIUM CHLORIDE 20 MEQ TAB.PRT.SR PO SCH (07:00)
[2016-06-21] MEDS: ACETYLCYSTEINE 10% SOLN 400 MG/4 ML VIAL NEB SCH ×3 (07:25→23:40)
[2016-06-21] MEDS: FUROSEMIDE 40 MG/4 ML VIAL IV SCH ×2 (07:51→11:08)
[2016-06-21] MEDS: POTASSIUM CHLORIDE 20 MEQ POWDER PACKET GT SCH ×3 (07:51→09:24)
[2016-06-21] MEDS: MEROPENEM 1 G in IV NS 0.9% 100 ML IV SCH ×2 (07:51→20:47)
[2016-06-21] MEDS: SUCRALFATE 1 G/10 ML UDC GT SCH ×4 (07:51→21:47)
[2016-06-21] MEDS: OSELTAMIVIR PHOSPHATE 75 MG CAPSULE PO SCH ×2 (08:13→17:38)
[2016-06-21] MEDS: AMIODARONE HCL 200 MG TABLET PO SCH ×3 (08:13→17:38)
[2016-06-21] MEDS: HYDROCORTISONE SOD SUCCINATE 100 MG/2 ML VIAL IV SCH ×3 (08:14→17:38)
[2016-06-21] MEDS: CLOTRIMAZOLE 1% 15 GM TUBE TP SCH ×2 (08:31→17:39)
[2016-06-21] MEDS: PANTOPRAZOLE 40 MG VIAL IV SCH ×2 (08:31→20:55)
[2016-06-21] MEDS: Z GUARD REMEDY 2 OZ OINT TP SCH (08:31)
[2016-06-21] MEDS: SULFAMETHOXAZOLE/TRIMETHOPRIM 15 ML in IV D5W 250 ML IV SCH ×3 (09:24→23:56)
[2016-06-21] MEDS: MICAFUNGIN SODIUM 100 MG in IV NS 0.9% 100 ML IV SCH (11:03)
[2016-06-21] MEDS: DIGOXIN ELIX UDC 0.25 MG/5 ML UDC GT SCH (12:13)
[2016-06-21] MEDS ORDERED: BLOOD IV SET 1 EA INFUS.SET MC ONE (12:28)
[2016-06-21] MEDS ORDERED: IV NS 0.9% 250 ML IV ONE (12:28)
[2016-06-21 13:05] LABS: HEMOGLOBIN 8.3 g/dL (11.5-14.8)
[2016-06-21] MEDS: GLYTROL 1,000 ML BAG GT PRN (13:53)
[2016-06-21] MEDS: AZITHROMYCIN 500 MG in IV D5W 250 ML IV SCH (14:21)
[2016-06-21] MEDS: INSULIN DETEMIR 100 UNIT/ML CARTRIDGE SQ SCH (21:57)
[2016-06-21] MEDS ORDERED: IV SET PRIMARY PUMP SET 1 EA INFUS.SET MC ONE (23:49)
[2016-06-21] MEDS ORDERED: SECONDARY IV SET 1 EA INFUS.SET MC ONE (23:50)
[2016-06-22] VITALS (41 sets, daily range): BP systolic 86–147; BP diastolic 39–89
[2016-06-22] MEDS: IV NS 0.9% 250 ML IV PRN (00:02)
[2016-06-22] MEDS: IPRATROPIUM NEB FS 0.5 MG/2.5 ML AMPUL.NEB NEB SCH ×6 (03:41→22:55)
[2016-06-22] MEDS: ALBUTEROL FS 2.5 MG/3 ML VIAL.NEB NEB SCH ×6 (03:41→22:55)
[2016-06-22] MEDS ORDERED: IV NS 0.9% 500 ML IV ONE (03:58)
[2016-06-22 05:03] LABS: BASOPHILS % (AUTO) 0.1 % (0.0-2.0); DIFF TOTAL % 100 %; EOSINOPHILS % (AUTO) 0.1 % (0.0-6.0); HEMATOCRIT 25 % (33-45); HEMOGLOBIN 8.4 g/dL (11.5-14.8); LYMPHOCYTES # (AUTO) 0.2 /CMM (0.8-4.8); LYMPHOCYTES % (AUTO) 1.7 % (20.0-44.0); MEAN CORPUSCULAR HEMOGLOBIN 30 PG (26.0-33.0); MEAN CORPUSCULAR HGB CONC 33 g/dl (31.0-36.0); MEAN CORPUSCULAR VOLUME 89 fL (82-100); MONOCYTES # (AUTO) 0.1 /CMM (0.1-1.30); MONOCYTES % (AUTO) 0.8 % (2.0-12.0); NEUTROPHILS % (AUTO) 97.3 % (43.0-81.0); PLATELET COUNT (AUTO) 118 /CMM (150-450); RED BLOOD CELL COUNT(AUTO) 2.82 MIL/uL (4.0-5.2); WHITE BLOOD COUNT (AUTO) 9.3 K/uL (4.3-11.0)
[2016-06-22 05:21] LABS: CALCIUM, SERUM 8.3 mg/dL (8.5-10.1); CREATININE 1.2 mg/dL (0.6-1.3); PHOSPHORUS 2.6 mg/dL (2.5-4.9); POTASSIUM 3.4 mmol/L (3.5-5.1)
[2016-06-22] MEDS: METOCLOPRAMIDE HCL 10 MG/2 ML VIAL IV SCH ×3 (05:39→17:26)
[2016-06-22] MEDS: ACETYLCYSTEINE 10% SOLN 400 MG/4 ML VIAL NEB SCH ×3 (06:47→22:55)
[2016-06-22] MEDS ORDERED: POTASSIUM CHLORIDE 20 MEQ TAB.PRT.SR PO SCH (07:00)
[2016-06-22] MEDS: SUCRALFATE 1 G/10 ML UDC GT SCH ×4 (07:58→21:18)
[2016-06-22] MEDS: FUROSEMIDE 40 MG/4 ML VIAL IV SCH ×3 (07:58→16:11)
[2016-06-22] MEDS: MEROPENEM 1 G in IV NS 0.9% 100 ML IV SCH ×2 (08:00→20:02)
[2016-06-22] MEDS: AMIODARONE HCL 200 MG TABLET PO SCH ×3 (08:26→16:11)
[2016-06-22] MEDS: Z GUARD REMEDY 2 OZ OINT TP SCH (08:26)
[2016-06-22] MEDS: OSELTAMIVIR PHOSPHATE 75 MG CAPSULE PO SCH ×2 (08:26→16:12)
[2016-06-22] MEDS: PANTOPRAZOLE 40 MG VIAL IV SCH ×2 (08:26→20:10)
[2016-06-22] MEDS: HYDROCORTISONE SOD SUCCINATE 100 MG/2 ML VIAL IV SCH ×3 (08:26→16:11)
[2016-06-22] MEDS: CLOTRIMAZOLE 1% 15 GM TUBE TP SCH ×2 (08:27→16:23)
[2016-06-22] MEDS: POTASSIUM CHLORIDE 20 MEQ POWDER PACKET GT SCH ×3 (08:31→09:57)
[2016-06-22] MEDS ORDERED: IV SET PRIMARY PUMP SET 1 EA INFUS.SET MC ONE (09:05)
[2016-06-22] MEDS: SULFAMETHOXAZOLE/TRIMETHOPRIM 15 ML in IV D5W 250 ML IV SCH ×2 (09:05→16:11)
[2016-06-22] MEDS: GLYTROL 1,000 ML BAG GT PRN (09:28)
[2016-06-22] MEDS: MICAFUNGIN SODIUM 100 MG in IV NS 0.9% 100 ML IV SCH (11:11)
[2016-06-22] MEDS: DIGOXIN ELIX UDC 0.25 MG/5 ML UDC GT SCH (12:33)
[2016-06-22] MEDS ORDERED: LIDOCAINE HCL/PF 1% 30 ML SDV ONE (14:32)
[2016-06-22] MEDS: AZITHROMYCIN 500 MG in IV D5W 250 ML IV SCH (16:10)
[2016-06-22 16:40] LABS: CSF GLUCOSE 88 mg/dL (40-70); CSF PROTEIN 35.6 mg/dL (15-45)
[2016-06-22 17:19] LABS: CSF APPEARANCE CLEAR (CLEAR); CSF COLOR COLORLESS (COLORLESS)
[2016-06-22 17:20] LABS: CSF WHITE BLOOD CELL COUNT 1 /cumm (0-5)
[2016-06-22] MEDS: INSULIN DETEMIR 100 UNIT/ML CARTRIDGE SQ SCH (22:27)
[2016-06-23] VITALS (45 sets, daily range): BP systolic 87–133; BP diastolic 35–74
[2016-06-23] MEDS: METOCLOPRAMIDE HCL 10 MG/2 ML VIAL IV SCH ×5 (00:31→23:44)
[2016-06-23] MEDS: SULFAMETHOXAZOLE/TRIMETHOPRIM 15 ML in IV D5W 250 ML IV SCH ×4 (00:31→23:45)
[2016-06-23] MEDS: IV NS 0.9% 250 ML IV PRN ×2 (00:32→20:23)
[2016-06-23] MEDS: IPRATROPIUM NEB FS 0.5 MG/2.5 ML AMPUL.NEB NEB SCH ×6 (03:09→23:13)
[2016-06-23] MEDS: ALBUTEROL FS 2.5 MG/3 ML VIAL.NEB NEB SCH ×6 (03:09→23:13)
[2016-06-23] MEDS ORDERED: IV NS 0.9% 500 ML IV ONE (04:36)
[2016-06-23 05:25] LABS: CREATININE 1.2 mg/dL (0.6-1.3); POTASSIUM 3.5 mmol/L (3.5-5.1)
[2016-06-23 05:26] LABS: BASOPHILS % (AUTO) 0.2 % (0.0-2.0); DIFF TOTAL % 100 %; HEMATOCRIT 26 % (33-45); HEMOGLOBIN 8.8 g/dL (11.5-14.8); LYMPHOCYTES # (AUTO) 0.3 /CMM (0.8-4.8); LYMPHOCYTES % (AUTO) 3.6 % (20.0-44.0); MEAN CORPUSCULAR HEMOGLOBIN 30 PG (26.0-33.0); MEAN CORPUSCULAR HGB CONC 34 g/dl (31.0-36.0); MEAN CORPUSCULAR VOLUME 88 fL (82-100); MONOCYTES # (AUTO) 0.1 /CMM (0.1-1.30); MONOCYTES % (AUTO) 1.4 % (2.0-12.0); NEUTROPHILS # (AUTO) 7.6 /CMM (1.8-8.9); NEUTROPHILS % (AUTO) 94.8 % (43.0-81.0); PLATELET COUNT (AUTO) 123 /CMM (150-450); RED BLOOD CELL COUNT(AUTO) 2.97 MIL/uL (4.0-5.2)
[2016-06-23 05:37] LABS: CREATININE, URINE 18.6 MG/DL (30.0-125.0)
[2016-06-23] MEDS: ACETYLCYSTEINE 10% SOLN 400 MG/4 ML VIAL NEB SCH ×3 (07:36→23:13)
[2016-06-23] MEDS: PANTOPRAZOLE 40 MG VIAL IV SCH ×2 (08:45→20:23)
[2016-06-23] MEDS: SUCRALFATE 1 G/10 ML UDC GT SCH ×4 (08:45→21:11)
[2016-06-23] MEDS: HYDROCORTISONE SOD SUCCINATE 100 MG/2 ML VIAL IV SCH ×3 (08:45→17:41)
[2016-06-23] MEDS: MEROPENEM 1 G in IV NS 0.9% 100 ML IV SCH ×2 (08:45→20:22)
[2016-06-23] MEDS: AMIODARONE HCL 200 MG TABLET PO SCH ×3 (08:46→17:41)
[2016-06-23] MEDS ORDERED: IV SET PRIMARY PUMP SET 1 EA INFUS.SET MC ONE (08:49)
[2016-06-23] MEDS: POTASSIUM CHLORIDE 20 MEQ TAB.PRT.SR PO SCH ×3 (09:00→11:04)
[2016-06-23] MEDS: FUROSEMIDE 40 MG/4 ML VIAL IV SCH ×3 (09:01→17:41)
[2016-06-23] MEDS: Z GUARD REMEDY 2 OZ OINT TP SCH (09:02)
[2016-06-23] MEDS: CLOTRIMAZOLE 1% 15 GM TUBE TP SCH ×2 (09:02→17:42)
[2016-06-23] MEDS: GLYTROL 1,000 ML BAG GT PRN (09:34)
[2016-06-23] MEDS: MICAFUNGIN SODIUM 100 MG in IV NS 0.9% 100 ML IV SCH (10:18)
[2016-06-23] MEDS: DIGOXIN ELIX UDC 0.25 MG/5 ML UDC GT SCH (12:07)
[2016-06-23] MEDS: AZITHROMYCIN 500 MG in IV D5W 250 ML IV SCH (15:20)
[2016-06-23] MEDS: INSULIN DETEMIR 100 UNIT/ML CARTRIDGE SQ SCH (21:13)
[2016-06-24] VITALS (33 sets, daily range): BP systolic 93–137; BP diastolic 6–78
[2016-06-24] MEDS: ALBUTEROL FS 2.5 MG/3 ML VIAL.NEB NEB SCH ×6 (03:20→22:43)
[2016-06-24] MEDS: IPRATROPIUM NEB FS 0.5 MG/2.5 ML AMPUL.NEB NEB SCH ×6 (03:20→22:43)
[2016-06-24] MEDS: GLYTROL 1,000 ML BAG GT PRN (03:27)
[2016-06-24 05:04] LABS: DIFF TOTAL % 100 %; HEMATOCRIT 27 % (33-45); HEMOGLOBIN 8.5 g/dL (11.5-14.8); LYMPHOCYTES # (AUTO) 0.1 /CMM (0.8-4.8); LYMPHOCYTES % (AUTO) 1.7 % (20.0-44.0); MEAN CORPUSCULAR HEMOGLOBIN 28 PG (26.0-33.0); MEAN CORPUSCULAR HGB CONC 32 g/dl (31.0-36.0); MEAN CORPUSCULAR VOLUME 89 fL (82-100); MONOCYTES % (AUTO) 0.5 % (2.0-12.0); NEUTROPHILS # (AUTO) 6.7 /CMM (1.8-8.9); NEUTROPHILS % (AUTO) 97.8 % (43.0-81.0); PLATELET COUNT (AUTO) 151 /CMM (150-450); WHITE BLOOD COUNT (AUTO) 6.9 K/uL (4.3-11.0)
[2016-06-24 05:15] LABS: CALCIUM, SERUM 8.4 mg/dL (8.5-10.1); CREATININE 1.2 mg/dL (0.6-1.3); PHOSPHORUS 2.4 mg/dL (2.5-4.9); POTASSIUM 4.5 mmol/L (3.5-5.1)
[2016-06-24] MEDS: METOCLOPRAMIDE HCL 10 MG/2 ML VIAL IV SCH ×4 (05:27→23:25)
[2016-06-24] MEDS: ACETYLCYSTEINE 10% SOLN 400 MG/4 ML VIAL NEB SCH ×3 (08:02→22:43)
[2016-06-24] MEDS: MEROPENEM 1 G in IV NS 0.9% 100 ML IV SCH (08:18)
[2016-06-24] MEDS: SUCRALFATE 1 G/10 ML UDC GT SCH ×4 (08:18→21:38)
[2016-06-24] MEDS: HYDROCORTISONE SOD SUCCINATE 100 MG/2 ML VIAL IV SCH ×3 (08:19→17:17)
[2016-06-24] MEDS: CLOTRIMAZOLE 1% 15 GM TUBE TP SCH ×2 (08:19→17:19)
[2016-06-24] MEDS: AMIODARONE HCL 200 MG TABLET PO SCH ×3 (08:19→17:17)
[2016-06-24] MEDS: PANTOPRAZOLE 40 MG VIAL IV SCH ×2 (08:19→21:38)
[2016-06-24] MEDS: Z GUARD REMEDY 2 OZ OINT TP SCH (08:20)
[2016-06-24] MEDS: SULFAMETHOXAZOLE/TRIMETHOPRIM 15 ML in IV D5W 250 ML IV SCH ×3 (08:57→23:25)
[2016-06-24] MEDS ORDERED: BUMETANIDE INJ 8 MG in IV NS 0.9% 48 ML IV ONE (09:00)
[2016-06-24] MEDS ORDERED: IV SET PRIMARY PUMP SET 1 EA INFUS.SET MC ONE (09:23)
[2016-06-24] MEDS: MICAFUNGIN SODIUM 100 MG in IV NS 0.9% 100 ML IV SCH (10:23)
[2016-06-24] MEDS ORDERED: NEUTRA PHOS 1 POWD.PACKET GT ONE (12:00)
[2016-06-24] MEDS: DIGOXIN ELIX UDC 0.25 MG/5 ML UDC GT SCH (12:14)
[2016-06-24] MEDS ORDERED: AZITHROMYCIN 250 MG TABLET GT SCH (15:00)
[2016-06-24] MEDS ORDERED: CT SWABBABLE VALVE TRANS SET 1 EA INFUS.SET MC ONE (15:14)
[2016-06-24] MEDS ORDERED: IV NS 0.9% 0 ML IV ONE (15:14)
[2016-06-24] MEDS ORDERED: IOHEXOL-350 100 ML VIAL IV ONE (15:14)
[2016-06-24] MEDS: ACETAMINOPHEN 650 MG/20.3 ML UDC GT PRN (15:38)
[2016-06-24] MEDS: INSULIN DETEMIR 100 UNIT/ML CARTRIDGE SQ SCH (21:44)
[2016-06-25] VITALS (54 sets, daily range): BP systolic 67–151; BP diastolic 15–77
[2016-06-25] MEDS ORDERED: IV NS 0.9% 250 ML IV ONE (01:44)
[2016-06-25] MEDS: IPRATROPIUM NEB FS 0.5 MG/2.5 ML AMPUL.NEB NEB SCH ×4 (02:38→14:56)
[2016-06-25] MEDS: ALBUTEROL FS 2.5 MG/3 ML VIAL.NEB NEB SCH ×4 (02:38→14:56)
[2016-06-25 05:03] LABS: DIFF TOTAL % 100 %; EOSINOPHILS % (AUTO) 0.1 % (0.0-6.0); HEMATOCRIT 33 % (33-45); HEMOGLOBIN 10.8 g/dL (11.5-14.8); LYMPHOCYTES # (AUTO) 0.3 /CMM (0.8-4.8); LYMPHOCYTES % (AUTO) 2.1 % (20.0-44.0); MEAN CORPUSCULAR HEMOGLOBIN 29 PG (26.0-33.0); MEAN CORPUSCULAR HGB CONC 33 g/dl (31.0-36.0); MEAN CORPUSCULAR VOLUME 87 fL (82-100); MONOCYTES # (AUTO) 0.3 /CMM (0.1-1.30); MONOCYTES % (AUTO) 1.9 % (2.0-12.0); NEUTROPHILS # (AUTO) 12.5 /CMM (1.8-8.9); NEUTROPHILS % (AUTO) 95.9 % (43.0-81.0); PLATELET COUNT (AUTO) 249 /CMM (150-450); RED BLOOD CELL COUNT(AUTO) 3.72 MIL/uL (4.0-5.2)
[2016-06-25 05:24] LABS: ALBUMIN 2.2 g/dL (3.4-5.0); BILIRUBIN,TOTAL 0.6 mg/dL (0.2-1.0); CALCIUM, SERUM 8.2 mg/dL (8.5-10.1); CREATININE 1.4 mg/dL (0.6-1.3); PHOSPHORUS 2.6 mg/dL (2.5-4.9); POTASSIUM 4.2 mmol/L (3.5-5.1)
[2016-06-25] MEDS: METOCLOPRAMIDE HCL 10 MG/2 ML VIAL IV SCH ×2 (05:24→12:42)
[2016-06-25] MEDS: LORAZEPAM INJ 2 MG/ML VIAL IVP PRN ×2 (05:39→06:57)
[2016-06-25 05:50] LABS: ANISOCYTOSIS 1+; BAND % (MANUAL) 23 % (0.0-5.0); BASOPHILS % (MANUAL) 0 % (0.0-2.0); EOSINOPHILS % (MANUAL) 0 % (0-4); LYMPHOCYTES % (MANUAL) 3 % (16-48); PLATELET ESTIMATE ADEQUATE
[2016-06-25] MEDS ORDERED: IV SET PRIMARY PUMP SET 1 EA INFUS.SET MC ONE ×2 (07:20→14:29)
[2016-06-25] MEDS: ACETYLCYSTEINE 10% SOLN 400 MG/4 ML VIAL NEB SCH ×2 (07:20→14:56)
[2016-06-25] MEDS: NOREPINEPHRINE 16 MG in IV D5W 500 ML IV PRN (08:20)
[2016-06-25] MEDS: AMIODARONE HCL 200 MG TABLET PO SCH ×2 (08:52→13:00)
[2016-06-25] MEDS: SUCRALFATE 1 G/10 ML UDC GT SCH ×2 (08:52→12:00)
[2016-06-25] MEDS: HYDROCORTISONE SOD SUCCINATE 100 MG/2 ML VIAL IV SCH ×2 (08:52→13:10)
[2016-06-25] MEDS: PANTOPRAZOLE 40 MG VIAL IV SCH (08:53)
[2016-06-25] MEDS: CLOTRIMAZOLE 1% 15 GM TUBE TP SCH (08:53)
[2016-06-25] MEDS: Z GUARD REMEDY 2 OZ OINT TP SCH (08:54)
[2016-06-25] MEDS: BACITRACIN ZINC OINT (15 GM) 15 GM TUBE TP PRN (08:55)
[2016-06-25] MEDS: SULFAMETHOXAZOLE/TRIMETHOPRIM 15 ML in IV D5W 250 ML IV SCH (09:37)
[2016-06-25] MEDS ORDERED: IV NS 0.9% 1,000 ML IV PRN (09:51)
[2016-06-25 10:27] LABS: ABG BASE EXCESS 4.3 mmol/L; ABG HCO3 26.3 mmol/L; ABG PCO2 30.5 mmHg (35.0-45.0); ABG PH 7.553 (7.350-7.450); ABG PO2 68.1 mmHg (75.0-100.0); ABG TOTAL HEMOGLOBIN 11.1 G/dL (12.0-16.0); ALLEN TEST Pass; AaDO2 326.2 mmHg; O2Hb 91.7 % (94.0-97.0)
[2016-06-25] MEDS ORDERED: OSELTAMIVIR PHOSPHATE 75 MG CAPSULE PO SCH (11:30)
[2016-06-25] MEDS: MICAFUNGIN SODIUM 100 MG in IV NS 0.9% 100 ML IV SCH (12:42)
[2016-06-25] MEDS: DIGOXIN ELIX UDC 0.25 MG/5 ML UDC GT SCH (13:00)
[2016-06-25] MEDS ORDERED: PHENYLEPHRINE 20 MG in IV D5W 250 ML IV PRN ×4 (14:30)
[2016-06-25] MEDS ORDERED: OSELTAMIVIR PHOSPHATE SUSP 6 MG/ML BOTTLE GT SCH (21:00)
== END 2016-06-25 14:59 | disposition expired | DRG 870 ==
LOC: ER 21:11 → ICU 23:16 → TELE1 06-04 10:20 → TELE-TD 06-05 20:44 → ICU 06-06 06:14
PROVIDERS: ADMIT Legal Medicine; ATTEND Legal Medicine
PROC: 5A09357 Assistance with Respiratory Ventilation, Less than 24 Consecutive Hours, Continuous Positive Airway Pressure (ICD-10-PCS; 2016-05-31)
PROC: 5A09457 Assistance with Respiratory Ventilation, 24-96 Consecutive Hours, Continuous Positive Airway Pressure (ICD-10-PCS; 2016-06-01)
PROC: 0BH17EZ Insertion of Endotracheal Airway into Trachea, Via Natural or Artificial Opening (ICD-10-PCS; 2016-06-06)
PROC: 0W3P8ZZ Control Bleeding in Gastrointestinal Tract, Via Natural or Artificial Opening Endoscopic (ICD-10-PCS; 2016-06-06)
PROC: 5A1955Z Respiratory Ventilation, Greater than 96 Consecutive Hours (ICD-10-PCS; principal; 2016-06-06 12:00)
PROC: 0D598ZZ Destruction of Duodenum, Via Natural or Artificial Opening Endoscopic (ICD-10-PCS; 2016-06-09)
PROC: 0DH63UZ Insertion of Feeding Device into Stomach, Percutaneous Approach (ICD-10-PCS; 2016-06-14)
DX: A41.9 Sepsis, unspecified organism (principal); G93.40 Encephalopathy, unspecified; J18.9 Pneumonia, unspecified organism; J96.00 Acute respiratory failure, unspecified whether with hypoxia or hypercapnia; I50.43 Acute on chronic combined systolic (congestive) and diastolic (congestive) heart failure; J96.01 Acute respiratory failure with hypoxia; K26.4 Chronic or unspecified duodenal ulcer with hemorrhage; K72.00 Acute and subacute hepatic failure without coma; N17.0 Acute kidney failure with tubular necrosis; R65.21 Severe sepsis with septic shock; J44.1 Chronic obstructive pulmonary disease with (acute) exacerbation; I13.0 Hypertensive heart and chronic kidney disease with heart failure and stage 1 through stage 4 chronic kidney disease, or unspecified chronic kidney disease; D62 Acute posthemorrhagic anemia; E27.40 Unspecified adrenocortical insufficiency; E87.0 Hyperosmolality and hypernatremia; E87.2 Acidosis; G72.81 Critical illness myopathy; J44.0 Chronic obstructive pulmonary disease with (acute) lower respiratory infection; Z99.11 Dependence on respirator [ventilator] status; F03.90 Unspecified dementia, unspecified severity, without behavioral disturbance, psychotic disturbance, mood disturbance, and anxiety; I25.10 Atherosclerotic heart disease of native coronary artery without angina pectoris; N18.2 Chronic kidney disease, stage 2 (mild); K21.9 Gastro-esophageal reflux disease without esophagitis; D72.823 Leukemoid reaction; E66.9 Obesity, unspecified; E87.6 Hypokalemia; G62.9 Polyneuropathy, unspecified; I05.0 Rheumatic mitral stenosis; I27.2 Other secondary pulmonary hypertension; I45.10 Unspecified right bundle-branch block; I48.2 Chronic atrial fibrillation; K22.5 Diverticulum of esophagus, acquired; T38.0X5A Adverse effect of glucocorticoids and synthetic analogues, initial encounter; T46.0X5A Adverse effect of cardiac-stimulant glycosides and drugs of similar action, initial encounter; Z66 Do not resuscitate; Z87.11 Personal history of peptic ulcer disease; Z87.891 Personal history of nicotine dependence
CPT/HCPCS: 31720; 36415; 36569; 36600; 43246; 62270; 70450-TC; 71010-TC; 74000-TC; 76700-TC; 80048-TC; 80053-TC; 80061-TC; 80074; 80076-TC; 80162-TC; 80202-TC; 81000-TC; 82040-TC; 82247-TC; 82248-TC; 82272-TC; 82533; 82570-TC; 82785; 82803-TC; 82962-TC; 83540-TC; 83605-TC; 83615-TC; 83690-TC; 83735-TC; 83880; 84100-TC; 84300-TC; 84484-TC; 85025-TC; 85027-TC; 85610-TC; 85730-TC; 86713; 86738; 86850-TC; 86901; 86921-TC; 87040-TC; 87070-TC; 87081-TC; 87086-TC; 87102-TC; 87281; 87400; 87899; 89051-TC; 93307-TC; 94002-TC; 94003-TC; 94660; 94760-TC; 94799-TC; 97001-TC; 97116-TC; 97530-TC; 99082-TC; A4216; A4217; A4606; A6402; A6403; C1751; C9113; J0171; J0278; J0330; J0456; J0637; J0692; J1160; J1650; J1720; J1815; J1940; J1956; J2060; J2185; J2248; J2270; J2370; J2543; J2765; J2916; J2930; J3370; J3480; J3490; J7030; J7040; J7042; J7050; J7060; J7070; P9016-BL; P9047; Q9963; Q9967; Z7610